=== PATIENT | female | born 1955 | race Caucasian/White ===

== ENCOUNTER 2016-10-29 19:10 | Inpatient (IN) | payer BC ==
[2016-10-29] MEDS ORDERED: Scopolamine 1.5 MG Transdermal Patch TRDERM PRN (20:30)
[2016-10-29] MEDS ORDERED: Sodium Chloride 0.9% 1,000 ML IV SCH (20:45)
[2016-10-29] MEDS ORDERED: LORazepam 2 MG/ML MDV IVPUSH ONE (21:22)
--- NOTE | 2016-10-29 21:50 | EDM.PDOC ---
ED HPI GENERAL MEDICAL PROBLEM - General Chief Complaint: General Stated Complaint: NAUSEA Time Seen by Provider: 10/29/16 20:12 Source of Information: Reports: Patient, Family ( Femi) History Limitations: Reports: Other (weakness, active vomiting) - History of Present Illness INITIAL COMMENTS - FREE TEXT/NARRATIVE: nausea and vomiting; this is a 60 year old female presents to ER with her , Femi, who reports his has been vomiting every day for the past 2 months, today has had continues vomiting. She is so weak from lack of food and water. difficulty walking due to weakness, has lost 30 pounds in the past 3 months. last bowel movement today. would like her admitted to get her stronger and gain wt. also has left leg pain since starting chemo. past history; diagnosis of endometral cancer 2014; hysterectomy, chemo therapy started. told cancer was gone. This year cancer is back, stage IV, mets to liver, spine. Not happy with care/ services at last Hospital ([facility]), they self referred to [facility]. Started Chemo; Aloxi IV, Bendryl IV, Decadron IV, Pepcid IV, Emend IV, Doxil IV [facility]; MRI, CT from head to toe. 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: Reports: Other (see below) Left Upper Leg Pain Score (Numeric/FACES): 8 - Related Data Allergies Allergy/AdvReac Type Severity Reaction Status Date / Time No Known Allergies Allergy Verified 10/29/16 20:12 Home Meds: Home Meds *Cannibus PO ASDIRECTED 10/29/16 [History] *Cbd Oil ASDIRECTED 10/29/16 [History] *Doxil ASDIRECTED 10/29/16 [History] LORazepam [Ativan ORAL Concentrate 1MG/0.5 ML U/D] 1 mg PO ASDIRECTED 10/29/16 [ History] Morphine 2.5 ml PO ASDIRECTED 10/29/16 [History] Ondansetron [Zofran ODT] 8 mg PO ASDIRECTED 10/29/16 [History] Past Medical History HEENT History: Reports: Impaired Vision Cardiovascular History: Reports: Arrhythmia, Blood Clots/VTE/DVT, Other (See Below) Other Cardiovascular History: cardiovert Gastrointestinal History: Reports: Chronic Constipation, Chronic Diarrhea, GERD 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: Other (See Below) Other OB/BYN History: endometrial cancer Immunologic History: Reports: Immunosuppression Oncologic (Cancer) History: Reports: Other (See Below) Other Oncologic History: endometrial - Infectious Disease History Infectious Disease History: Reports: Chicken Pox - Past Surgical History HEENT Surgical History: Reports: Other (See Below) Other HEENT Surgeries/Procedures: patch hole in ear drum Female Surgical History: Reports: Hysterectomy, Oophorectomy, Salpingo- Oophorectomy Social & Family History - Tobacco Use Smoking Status *Q: Never Smoker - Caffeine Use Caffeine Use: Reports: None - Recreational Drug Use Recreational Drug Use: No - Living Situation & Occupation Living situation: Reports: Occupation: Other (Valeria is to Femi, 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 They have two grown children ages 41 yr and 42 yr., many grandchildren.) ED ROS GENERAL - Review of Systems Review Of Systems: See Below Constitutional: Reports: Fever, Chills, Malaise, Weakness, Fatigue, Decreased Appetite, Weight Loss HEENT: Reports: Other (right ear with implant for hearing) Respiratory: Reports: Cough Cardiovascular: Reports: Dyspnea on Exertion, Edema (lower legs.) Endocrine: Reports: Fatigue GI/Abdominal: Reports: Abdominal Pain, Anorexia, Decreased Appetite, Nausea, Vomiting, Other (hx of endometrial cancer with mets to liver and spine) : Reports: Flank Pain Musculoskeletal: Reports: Back Pain, Leg Pain (left) Skin: Reports: No Symptoms Neurological: Reports: Difficulty Walking, Weakness Psychiatric: Reports: No Symptoms Hematologic/Lymphatic: Reports: No Symptoms Immunologic: Reports: No Symptoms ED EXAM, GENERAL - Physical Exam Exam: See Below Exam Limited By: Other (vomiting and weakness) General Appearance: Lethargic, Moderate Distress, Thin Eye Exam: Bilateral Eye: PERRL Ears: Normal External Exam, Normal Canal, Hearing Grossly Normal, Normal TMs, Other (hearing aid in right ear) Ear Exam: Bilateral Ear: Auricle Normal, Canal Normal, TM normal Nose: Normal Inspection, Normal Mucosa, No Blood Throat/Mouth: Normal Inspection, Normal Lips, Normal Teeth, Normal Gums, Normal Oropharynx, Normal Voice, No Airway Compromise Head: Atraumatic, Normocephalic Respiratory/Chest: No Respiratory Distress, Lungs Clear, Normal Breath Sounds Cardiovascular: Regular Rate, Rhythm, Other (murmur noted) GI/Abdominal: Tender, Other (abdomen firm, tender to exam) (Female) Exam: Deferred Rectal (Female) Exam: Deferred Back Exam: Normal Inspection Extremities: Normal Inspection, Normal Range of Motion, Non-Tender, Pedal Edema , Leg Pain Neurological: Alert, Oriented, Normal Cognition, Slow to Respond Psychiatric: Flat Affect Skin Exam: Warm, Dry, Intact, Pallor Lymphatic: No Adenopathy Course - Vital Signs Last Recorded V/S: Last Vital Signs Temp 37.5 C 10/29/16 20:22 Pulse 90 10/29/16 20:22 Resp 16 10/29/16 20:22 BP 131/57 L 10/29/16 20:22 Pulse Ox 94 L 10/29/16 20:22 - Orders/Labs/Meds Orders: Active Orders 24 hr Category Date Time Status AMYLASE [CHEM] Urgent Lab 10/29/16 20:38 Ordered CBC WITH AUTO DIFF [HEME] Urgent Lab 10/29/16 20:38 Ordered COMPREHENSIVE METABOLIC PN,CMP [CHEM] Urgent Lab 10/29/16 20:38 Ordered LACTIC ACID [CHEM] Stat Lab 10/29/16 20:39 Ordered LIPASE [CHEM] Urgent Lab 10/29/16 20:38 Ordered MAGNESIUM [CHEM] Urgent Lab 10/29/16 20:38 Ordered UA W/MICROSCOPIC [URIN] Urgent Lab 10/29/16 20:39 Uncollected Scopolamine [Transderm-Scop] Med 10/29/16 20:30 Active 1.5 mg TRDERM Q72H PRN Sodium Chloride 0.9% [Normal Saline] 1,000 ml Med 10/29/16 20:45 Active IV ASDIRECTED Medication Orders Sodium Chloride (Normal Saline) 1,000 mls @ 999 mls/hr IV ASDIRECTED PAU Last Admin: 10/29/16 21:19 Dose: 999 mls/hr Scopolamine (Transderm-Scop) 1.5 mg TRDERM Q72H PRN PRN Reason: Nausea/Vomiting Last Admin: 10/29/16 21:11 Dose: 1.5 mg Meds: Medications Generic Name Dose Route Start Last Admin Trade Name Freq PRN Reason Stop Dose Admin Sodium Chloride 1,000 mls @ 999 mls/hr 10/29/16 20:45 10/29/16 21:19 Normal Saline IV 999 mls/hr ASDIRECTED PAU Administration Scopolamine 1.5 mg 10/29/16 20:30 10/29/16 21:11 Transderm-Scop TRDERM 1.5 mg Q72H PRN Administration Nausea/Vomiting Discontinued Medications Generic Name Dose Route Start Last Admin Trade Name Freq PRN Reason Stop Dose Admin Lorazepam 1 mg 10/29/16 21:22 Ativan IVPUSH 10/29/16 21:23 ONETIME ONE - Re-Assessments/Exams Free Text/Narrative Re-Assessment/Exam: 10/29/16 21:58 order ; IV medications, IV fluids, Labs cbc, cmp, amylase, lipase, ur will plan to admit to hospital for further care and treatment. Departure - Departure Time of Disposition: 22:01 Disposition: Admitted As Inpatient 64 Condition: Poor Clinical Impression: Nausea and vomiting in adult patient, Endometrial cancer, Generalized weakness , Adenocarcinoma of endometrium, stage 4 - Discharge Information Forms: ED Department Discharge - My Orders Last 24 Hours: My Active Orders 10/29/16 20:30 Scopolamine [Transderm-Scop] 1.5 mg TRDERM Q72H PRN 10/29/16 20:38 AMYLASE [CHEM] Urgent CBC WITH AUTO DIFF [HEME] Urgent COMPREHENSIVE METABOLIC PN,CMP [CHEM] Urgent LIPASE [CHEM] Urgent MAGNESIUM [CHEM] Urgent 10/29/16 20:39 LACTIC ACID [CHEM] Stat UA W/MICROSCOPIC [URIN] Urgent 10/29/16 20:45 Sodium Chloride 0.9% [Normal Saline] 1,000 ml IV ASDIRECTED - Assessment/Plan Last 24 Hours: My Active Orders 10/29/16 20:30 Scopolamine [Transderm-Scop] 1.5 mg TRDERM Q72H PRN 10/29/16 20:38 AMYLASE [CHEM] Urgent CBC WITH AUTO DIFF [HEME] Urgent COMPREHENSIVE METABOLIC PN,CMP [CHEM] Urgent LIPASE [CHEM] Urgent MAGNESIUM [CHEM] Urgent 10/29/16 20:39 LACTIC ACID [CHEM] Stat UA W/MICROSCOPIC [URIN] Urgent 10/29/16 20:45 Sodium Chloride 0.9% [Normal Saline] 1,000 ml IV ASDIRECTED
[2016-10-29] MEDS ORDERED: Magnesium Sulfate/Water 2 GM in Premix Bag 1 BAG IV ONE (22:33)
[2016-10-29] MEDS ORDERED: Albuterol 0.083% 2.5 MG/3 ML Neb Soln NEB PRN (22:33)
[2016-10-29] MEDS ORDERED: HYDROmorphone/Normal Saline 15 MG/30 ML PCA IV PRN (22:33)
[2016-10-29] MEDS ORDERED: Naloxone 0.4 MG/ML SDV IVPUSH PRN ×2 (22:33)
[2016-10-29] MEDS ORDERED: Ketorolac 30 MG/ML SDV IVPUSH PRN (22:33)
[2016-10-29] MEDS ORDERED: LORazepam 2 MG/ML MDV IV PRN (22:33)
[2016-10-29] MEDS ORDERED: Zolpidem 5 MG Tab PO PRN (22:33)
[2016-10-29] MEDS ORDERED: Potassium Chloride 20 MEQ in Premix Bag 1 BAG IV ONE (22:33)
[2016-10-29] MEDS: Pantoprazole 40 MG Vial IV SCH (23:36)
[2016-10-30] MEDS: Lactated Ringers 1,000 ML IV SCH ×4 (00:05→23:21)
--- NOTE | 2016-10-30 00:15 | PCM.HP ---
H&P History of Present Illness - General Date of Service: 10/29/16 Admit Problem/Dx: Admission Diagnosis/Problem Admission Diagnosis/Problem Weakness Source of Information: Patient History Limitations: Reports: No Limitations - History of Present Illness Initial Comments - Free Text/Narative: INITIAL COMMENTS - FREE TEXT/NARRATIVE: nausea and vomiting; this is a 60 year old female presents to ER with her , Femi, who reports his has been vomiting every day for the past 2 months, today has had continues vomiting. She is so weak from lack of food and water. difficulty walking due to weakness, has lost 30 pounds in the past 3 months. last bowel movement today. would like her admitted to get her stronger and gain wt. also has left leg pain since starting chemo. past history; diagnosis of endometral cancer 2014; hysterectomy, chemo therapy started. told cancer was gone. This year cancer is back, stage IV, mets to liver, spine. Not happy with care/ services at last Hospital ([facility]), they self referred to [facility]. Started Chemo; Aloxi IV, Bendryl IV, Decadron IV, Pepcid IV, Emend IV, Doxil IV [facility]; MRI, CT from head to toe. 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: Other (see below) Left Upper Leg Pain Score (Numeric/FACES): 8 Onset of Symptoms: Reports: Gradual Duration of Symptoms: Reports: Week(s): (report 2 months of nausea), Constant, Getting Worse Location: Reports: Generalized Quality: Reports: Same as Previous Episode Severity: Severe Improves with: Reports: None Worsens with: Reports: None Associated Symptoms: Reports: Cough, Loss of Appetite, Malaise, Nausea/Vomiting , Weakness Left Upper Leg Pain Score (Numeric/FACES): 5 - Related Data Allergies/Adverse Reactions: Allergies Allergy/AdvReac Type Severity Reaction Status Date / Time No Known Allergies Allergy Verified 10/29/16 20:12 Home Medications: Home Meds *Cannibus PO ASDIRECTED 10/29/16 [History] *Cbd Oil ASDIRECTED 10/29/16 [History] *Doxil ASDIRECTED 10/29/16 [History] LORazepam [Ativan ORAL Concentrate 1MG/0.5 ML U/D] 1 mg PO ASDIRECTED 10/29/16 [ History] Morphine 2.5 ml PO ASDIRECTED 10/29/16 [History] Ondansetron [Zofran ODT] 8 mg PO ASDIRECTED 10/29/16 [History] Past Medical History HEENT History: Reports: Hard of Hearing, Impaired Vision Cardiovascular History: Reports: Arrhythmia, Blood Clots/VTE/DVT, Other (See Below) Other Cardiovascular History: cardiovert Respiratory History: Reports: PE Gastrointestinal History: Reports: Chronic Constipation, Chronic Diarrhea, GERD LANDING MAN History: 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: , Other (See Below) Other OB/BYN History: endometrial cancer Immunologic History: Reports: Immunosuppression Oncologic (Cancer) History: Reports: Other (See Below) Other Oncologic History: endometrial - Infectious Disease History Infectious Disease History: Reports: Chicken Pox - Past Surgical History HEENT Surgical History: Reports: Other (See Below) Other HEENT Surgeries/Procedures: patch hole in ear drum Female Surgical History: Reports: Hysterectomy, Oophorectomy, Salpingo- Oophorectomy Social & Family History - Tobacco Use Smoking Status *Q: Never Smoker Second Hand Smoke Exposure: No - Caffeine Use Caffeine Use: Reports: None - Recreational Drug Use Recreational Drug Use: Yes Other Recreational Drug Type: cannibus oil subliqual Recreational Drug Use Frequency: Daily - Living Situation & Occupation Living situation: Reports: Occupation: Other (lives with Femi , who is the "[employer]", [place], [place], two grown children age 41 yr and 42 yrs. many grandchildren) H&P Review of Systems - Review of Systems: Review Of Systems: Unable To Obtain General: Reports: Fever, Malaise, Weakness, Fatigue, Decreased Appetite HEENT: Reports: No Symptoms Pulmonary: Reports: Cough Cardiovascular: Reports: Dyspnea on Exertion Gastrointestinal: Reports: Abdominal Pain Genitourinary: Reports: Urgency Musculoskeletal: Reports: Back Pain, Leg Pain, Muscle Pain Skin: Reports: Pallor Psychiatric: Reports: No Symptoms Neurological: Reports: No Symptoms Hematologic/Lymphatic: Reports: No Symptoms Immunologic: Reports: No Symptoms Exam - Exam Exam: See Below - Vital Signs Vital Signs: Last Vital Signs Temp 37.3 C 10/29/16 22:09 Pulse 83 10/29/16 22:09 Resp 16 10/29/16 22:09 BP 107/44 L 10/29/16 22:09 Pulse Ox 95 10/29/16 22:09 Weight: 76 kg - Exam General: Alert, Oriented, Other (very pale female without hair, wearing a scarf. pleasant. appears chronically ill) HEENT: PERRLA, Hearing Intact, Mucosa Moist & [place], Nares Patent, Normal Nasal Septum, Posterior Pharynx Clear, Conjunctiva Clear, EOMI, EACs Clear, TMs Clear Neck: Supple, Trachea Midline, 2 Lungs: Clear to Auscultation, Normal Respiratory Effort Cardiovascular: Regular Rate, Regular Rhythm, Normal S1, Normal S2, Other ( murmur noted) Abdomen: Distention, Tenderness (Female) Exam: Deferred Rectal (Female) Exam: Deferred Back Exam: Normal Inspection, Full Range of Motion, NT Extremities: Edema, Other (noted left upper thigh.) Peripheral Pulses: 2+: Dorsalis Pedis (L), Dorsalis Pedis (R) Skin: Warm, Dry, Petechia (left upper thigh) Neurological: Strength Equal Bilateral (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), Normal Speech Neuro Extensive - Mental Status: Alert, Oriented x3, Normal Mood/Affect, Normal Cognition, Memory Intact Neuro Extensive - Motor, Sensory, Reflexes: Motor/Sensory Deficits Psychiatric: Alert, Normal Affect, Normal Mood - Patient Data Lab Results Last 24 hrs: Laboratory Results - last 24 hr 10/29/16 Range/Units 23:20 Urine Color Josephine Urine Appearance Clear Urine pH 6.5 (4.5-8.0) Ur Specific [place] 1.015 (1.008-1.030) Urine Protein Negative (NEGATIVE) mg/dL Urine Glucose (UA) Normal (NEGATIVE) mg/dL Urine Ketones 50 H (NEGATIVE) mg/dL Urine Occult Blood Moderate (NEGATIVE) Urine Nitrite Negative (NEGATIVE) Urine Bilirubin Negative (NEGATIVE) Urine Urobilinogen Normal (NORMAL) mg/dL Ur Leukocyte Esterase Negative (NEGATIVE) Urine RBC 0-5 (0-5) Urine WBC 5-10 H (0-5) Ur Epithelial Cells Few Amorphous Sediment Not seen Urine Bacteria Few Urine Mucus Many Result Diagrams: 10/29/16 20:39 10/29/16 20:39 *Q Meaningful Use (ADM) - VTE *Q VTE Criteria *Q: - Stroke *Q Stroke Criteria *Q: - AMI *Q AMI Criteria *Q: - Problem List (1) Adenocarcinoma of endometrium, stage 4 SNOMED Code(s): 388036885 ICD Code: C54.1 - MALIGNANT NEOPLASM OF ENDOMETRIUM Status: Acute Priority: High Current Visit: Yes (2) Generalized weakness SNOMED Code(s): 95724111 ICD Code: R53.1 - WEAKNESS Status: Acute Priority: High Current Visit: Yes (3) Nausea and vomiting in adult patient SNOMED Code(s): 94048483 ICD Code: R11.2 - NAUSEA WITH VOMITING, UNSPECIFIED Status: Acute Priority: High Current Visit: Yes Problem List Initiated/Reviewed/Updated: Yes Orders Last 24hrs: Active Orders 24 hr Category Date Time Status Patient Status [ADT] Routine ADT 10/29/16 22:33 Active Communication Order [RC] STAT Care 10/29/16 22:33 Active Communication Order [RC] STAT Care 10/29/16 22:33 Active Intake and Output [RC] QSHIFT Care 10/29/16 22:33 Active Notify Provider [RC] PRN Care 10/29/16 22:33 Active Notify Provider [RC] PRN Care 10/29/16 22:33 Active Oxygen Therapy [RC] PRN Care 10/29/16 22:33 Active MORGUE KEEPER Record [RC] PER UNIT ROUTINE Care 10/29/16 22:33 Active MORGUE KEEPER Record [RC] PER UNIT ROUTINE Care 10/29/16 22:33 Active Pulse Oximetry [RC] CONTINUOUS Care 10/29/16 22:33 Active Pulse Oximetry [RC] CONTINUOUS Care 10/29/16 22:33 Active RT Aerosol Therapy [RC] ASDIRECTED Care 10/29/16 22:33 Active Up With Assistance [RC] ASDIRECTED Care 10/29/16 22:33 Active VTE/DVT Education [RC] Per Unit Routine Care 10/29/16 22:33 Active Vital Signs [RC] Q4H Care 10/29/16 22:33 Active OT Evaluation and Treatment [CONS] Routine Cons 10/29/16 22:33 Active PT Evaluation and Treatment [CONS] Routine Cons 10/29/16 22:33 Active Clear Liquid Diet [DIET] Diet 10/29/16 Breakfast Active BASIC METABOLIC PANEL,BMP [CHEM] AM Lab 10/30/16 05:11 Ordered CBC WITH AUTO DIFF [HEME] AM Lab 10/30/16 05:11 Ordered MAGNESIUM [CHEM] AM Lab 10/30/16 05:11 Ordered Albuterol [Proventil Neb Soln] Med 10/29/16 22:33 Active 2.5 mg NEB Q4H PRN HYDROmorphone/Normal Saline [Dilaudid MORGUE KEEPER 15 MG in NS Med 10/29/16 22:33 Active 30 ML] See Protocol IV ASDIRECTED PRN Ketorolac [Toradol] Med 10/29/16 22:33 Active 30 mg IVPUSH Q6H PRN LORazepam [Ativan] Med 10/29/16 22:33 Active 1 mg IV Q6H PRN Lactated Ringers [Ringers, Lactated] 1,000 ml Med 10/29/16 23:45 Active IV ASDIRECTED Magnesium Sulfate/Water [Magnesium Sulfate 2 GM in Med 10/29/16 22:33 Active Water 50 ML] 2 gm Premix Bag 1 bag IV ONETIME Naloxone [Narcan] Med 10/29/16 22:33 Active 0.4 mg IVPUSH Q2M PRN Naloxone [Narcan] Med 10/29/16 22:33 Active 0.4 mg IVPUSH Q2M PRN Ondansetron [Zofran] Med 10/29/16 22:33 Active 4 mg IV Q4H PRN Pantoprazole [ProTONIX IV] Med 10/29/16 23:00 Active 40 mg IV Q12H Potassium Chloride [KCL 20 MEQ in Water 100 ML] 20 meq Med 10/29/16 22:33 Active Premix Bag 1 bag IV ONETIME Zolpidem [Ambien] Med 10/29/16 22:33 Active 5 mg PO BEDTIME PRN Medication Discontinuation Instructions [OM.PC] Stat Oth 10/29/16 22:33 Ordered Medication Discontinuation Instructions [OM.PC] Stat Oth 10/29/16 22:33 Ordered Sequential Compression Device [OM.PC] Per Unit Routine Oth 10/29/16 22:33 Ordered Resuscitation Status Routine Resus Stat 10/29/16 22:06 Ordered Medication Orders Albuterol (Proventil Neb Soln) 2.5 mg NEB Q4H PRN PRN Reason: Shortness Of Breath/wheezing Hydromorphone HCl (Dilaudid Application Architect Manager 15 Mg In Ns 30 Ml) 0 mg IV ASDIRECTED PRN; Protocol PRN Reason: Pain Last Admin: 10/29/16 23:58 Dose: 15 mg Sodium Chloride (Normal Saline) 1,000 mls @ 999 mls/hr IV ASDIRECTED [facility] Last Admin: 10/29/16 21:19 Dose: 999 mls/hr Magnesium Sulfate 2 gm/ Premix 50 mls @ 12.5 mls/hr IV ONETIME ONE Stop: 10/30/16 02:32 Last Admin: 10/29/16 23:33 Dose: 12.5 mls/hr Potassium Chloride 20 meq/ (Premix) 100 mls @ 50 mls/hr IV ONETIME ONE Stop: 10/30/16 00:32 Last Admin: 10/29/16 23:28 Dose: 50 mls/hr Lactated Ringer's (Ringers, Lactated) 1,000 mls @ 125 mls/hr IV ASDIRECTED [facility] Last Admin: 10/30/16 00:05 Dose: 125 mls/hr Ketorolac Tromethamine (Toradol) 30 mg IVPUSH Q6H PRN PRN Reason: Pain (moderate 4-6) Lorazepam (Ativan) 1 mg IV Q6H PRN PRN Reason: Nausea/Vomiting Naloxone HCl (Narcan) 0.4 mg IVPUSH Q2M PRN PRN Reason: Respiratory Distress Naloxone HCl (Narcan) 0.4 mg IVPUSH Q2M PRN PRN Reason: Respiratory Distress Ondansetron HCl (Zofran) 4 mg IV Q4H PRN PRN Reason: Nausea/Vomiting Pantoprazole Sodium (Protonix Iv) 40 mg IV Q12H [facility] Last Admin: 10/29/16 23:36 Dose: 40 mg Scopolamine (Transderm-Scop) 1.5 mg TRDERM Q72H PRN PRN Reason: Nausea/Vomiting Last Admin: 10/29/16 21:11 Dose: 1.5 mg Zolpidem Tartrate (Ambien) 5 mg PO BEDTIME PRN PRN Reason: Sleep Assessment/Plan Comment:: Assessment/Plan Comment:: nausea and vomiting; this is a 60 year old female presents to ER with her , Femi, who reports his has been vomiting every day for the past 2 months, today has had continues vomiting. She is so weak from lack of food and water. difficulty walking due to weakness, has lost 30 pounds in the past 3 months. last bowel movement today. would like her admitted to get her stronger and gain wt. also has left leg pain since starting chemo. past history; diagnosis of endometral cancer 2014; hysterectomy, chemo therapy started. told cancer was gone. This year cancer is back, stage IV, mets to liver, spine. Not happy with care/ services at last Hospital ([facility]), they self referred to [facility]. Started Chemo; Aloxi IV, Bendryl IV, Decadron IV, Pepcid IV, Emend IV, Doxil IV [facility]; MRI, CT from head to toe. Onset: Gradual Endometrial Cancer stage IV with mets to liver and spine Weakness Nausea and vomiting -Ativan .5 to 1mg IV every 6 hours as needed for N/V -IV LR 125ml/hr -clear liquid diet Maintenance issues - - DVT prophylaxis -SCD - GI prophylaxis - Protonix 40mg daily - Nutrition - clear liquid advance as tolerated - Enriquez catheter - not indicated CODE STATUS - FULL CODE Admission justification - This patient will be admitted for inpatient services and is medically appropriate meeting medical necessity for inpatient admission as outlined in my documentation. I reasonably expect the patient will require inpatient services that span a period time over 2 midnights. I reasonably expect this patient to be discharged or transferred within 96 hours [facility]. Disposition - anticipate discharged Home with Primary care physician - [facility] Hospitalist: Rodrigue Farrar M.D.
[2016-10-30] MEDS: Ondansetron 4 MG/2 ML SDV IV PRN ×2 (07:15→10:43)
[2016-10-30] MEDS: SCOPOLAMINE PATCH CHECK TOP SCH (08:14)
--- NOTE | 2016-10-30 09:34 | PCM.PN ---
- General Info Date of Service: 10/30/16 Functional Status: Reports: pain controlled, urinating - Review of Systems General: Reports: Weakness. Denies: Fever Gastrointestinal: Reports: Abdominal pain, Nausea Musculoskeletal: Reports: leg pain - Patient Data Vitals - most recent: Last Vital Signs Temp 37.0 C 10/30/16 07:52 Pulse 85 10/30/16 07:52 Resp 22 H 10/30/16 07:52 BP 138/58 L 10/30/16 07:52 Pulse Ox 91 L 10/30/16 07:52 Weight - most recent: 76 kg I&O - last 24 hours: Intake & Output 10/29/16 10/30/16 10/30/16 22:59 06:59 14:59 Intake Total 987 Output Total 300 200 Balance 687 -200 Lab Results last 24 hrs: Laboratory Results - last 24 hr 10/29/16 10/30/16 10/30/16 Range/Units 23:20 05:30 05:30 WBC 2.1 L (4.5-11.0) K/uL RBC 2.87 L (3.30-5.50) M/uL Hgb 7.6 L (12.0-15.0) g/dL Hct 24.3 L (36.0-48.0) % MCV 85 (80-98) fL MCH 27 (27-31) pg MCHC 31 L (32-36) % Plt Count 200 (150-400) K/uL Neut % (Auto) 75 H (36-66) % Lymph % (Auto) 15 L (24-44) % [place] % (Auto) 8 H (2-6) % Eos % (Auto) 2 (2-4) % Baso % (Auto) 1 (0-1) % Sodium 134 L (140-148) mmol/L Potassium 3.5 L (3.6-5.2) mmol/L Chloride 99 L (100-108) mmol/L Carbon Dioxide 30 (21-32) mmol/L Anion Gap 8.5 (5.0-14.0) mmol/L BUN 8 (7-18) mg/dL Creatinine 0.6 (0.6-1.0) mg/dL Est Cr Clr Drug Dosing 80.42 mL/min Estimated GFR (MDRD) > 60 (>60) Glucose 118 H (74-106) mg/dL Calcium 8.2 L (8.5-10.1) mg/dL Magnesium 1.7 L (1.8-2.4) mg/dL Urine Color [place] Urine Appearance Clear Urine pH 6.5 (4.5-8.0) Ur Specific [place] 1.015 (1.008-1.030) Urine Protein Negative (NEGATIVE) mg/dL Urine Glucose (UA) Normal (NEGATIVE) mg/dL Urine Ketones 50 H (NEGATIVE) mg/dL Urine Occult Blood Moderate (NEGATIVE) Urine Nitrite Negative (NEGATIVE) Urine Bilirubin Negative (NEGATIVE) Urine Urobilinogen Normal (NORMAL) mg/dL Ur Leukocyte Esterase Negative (NEGATIVE) Urine RBC 0-5 (0-5) Urine WBC 5-10 H (0-5) Ur Epithelial Cells Few Amorphous Sediment Not seen Urine Bacteria Few Urine Mucus Many Med Orders - Current: Current Medications Albuterol (Proventil Neb Soln) 2.5 mg NEB Q4H PRN PRN Reason: Shortness Of Breath/wheezing Al Hydroxide/Mg Hydroxide 15 (ml/ Lidocaine HCl 15 ml) 0 ml PO ONETIME ONE Stop: 10/30/16 09:30 Hydromorphone HCl (Dilaudid Administrative Analyst 15 Mg In Ns 30 Ml) 0 mg IV ASDIRECTED PRN; Protocol PRN Reason: Pain Last Admin: 10/29/16 23:58 Dose: 15 mg Lactated Ringer's (Ringers, Lactated) 1,000 mls @ 125 mls/hr IV ASDIRECTED PAU Last Admin: 10/30/16 08:09 Dose: 125 mls/hr Potassium Chloride 40 meq/ (Premix) 100 mls @ 25 mls/hr IV ONETIME ONE Stop: 10/30/16 13:29 Ketorolac Tromethamine (Toradol) 30 mg IVPUSH Q6H PRN PRN Reason: Pain (moderate 4-6) Stop: 11/03/16 18:00 Lorazepam (Ativan) 0.5 - 1 mg IV Q6H PRN PRN Reason: Nausea/Vomiting Naloxone HCl (Narcan) 0.4 mg IVPUSH Q2M PRN PRN Reason: Respiratory Distress Scopolamine Patch (Check) 1 each TOP DAILY [facility] Last Admin: 10/30/16 08:14 Dose: Not Given Ondansetron HCl (Zofran) 4 mg IV Q4H PRN PRN Reason: Nausea/Vomiting Last Admin: 10/30/16 07:15 Dose: 4 mg Pantoprazole Sodium (Protonix Iv) 40 mg IV Q12H [facility] Last Admin: 10/29/16 23:36 Dose: 40 mg Scopolamine (Transderm-Scop) 1.5 mg TRDERM Q72H PRN PRN Reason: Nausea/Vomiting Last Admin: 10/29/16 21:11 Dose: 1.5 mg Zolpidem Tartrate (Ambien) 5 mg PO BEDTIME PRN PRN Reason: Sleep Discontinued Medications Sodium Chloride (Normal Saline) 1,000 mls @ 999 mls/hr IV ASDIRECTED [facility] Last Admin: 10/29/16 21:19 Dose: 999 mls/hr Magnesium Sulfate 2 gm/ Premix 50 mls @ 12.5 mls/hr IV ONETIME ONE Stop: 10/30/16 02:32 Last Admin: 10/29/16 23:33 Dose: 12.5 mls/hr Potassium Chloride 20 meq/ (Premix) 100 mls @ 50 mls/hr IV ONETIME ONE Stop: 10/30/16 00:32 Last Admin: 10/29/16 23:28 Dose: 50 mls/hr Lorazepam (Ativan) 1 mg IVPUSH ONETIME ONE Stop: 10/29/16 21:23 Last Admin: 10/29/16 22:06 Dose: 1 mg Lorazepam (Ativan) 1 mg IV Q6H PRN PRN Reason: Nausea/Vomiting Naloxone HCl (Narcan) 0.4 mg IVPUSH Q2M PRN PRN Reason: Respiratory Distress - Exam Quality Assessment: No: supplemental oxygen General: alert, oriented, cooperative, no acute distress Neck: supple Lungs: Normal respiratory effort Cardiovascular: Regular Rate, Regular Rhythm Abdomen: soft, no distension Extremities: no edema, no cyanosis, other (bruising left lateral thigh. left lateral and anterior thigh ttp) Skin: warm, dry Psy/Mental Status: alert, normal affect - Problem List Review Problem List Initiated/Reviewed/Updated: Yes - My Orders Last 24 Hours: My Active Orders 10/30/16 09:29 Alum Hydrox/Mag Hydrox/Simeth [Mag-Al Plus] 15 ml Lidocaine 2% [Xylocaine 2% Viscous] 15 ml PO ONETIME 10/30/16 09:30 Potassium Chloride [KCL 40 MEQ in Water 100 ML] 40 meq Premix Bag 1 bag IV ONETIME 10/30/16 09:31 Cardiac Monitoring Discontinue [RC] Click to Edit 10/30/16 09:32 LORazepam [Ativan] 0.5 - 1 mg IV Q6H PRN Magnesium Sulfate/Water [Magnesium Sulfate 2 GM in Water 50 ML] 2 gm Premix Bag 1 bag IV ONETIME 10/30/16 Lunch Mechanical Soft Diet [DIET] 10/31/16 05:00 BASIC METABOLIC PANEL,BMP [CHEM] Timed CBC W/O DIFF,HEMOGRAM [HEME] Timed (1) TSH ULTRASENSITIVE [CHEM] Timed - Plan Plan:: Assessment/Plan Comment:: Nausea and vomiting with generalized weakness - etiology not entirely clear but no acute process identified so far. This could be related to recent chemotherapy and persistent dehydration. Gastritis is a possibility. No strong evidence for infection. Seems to be improving just with IV fluids and symptom management. -Antinausea medication -IV LR 125ml/hr -Advance diet as tolerated Left thigh pain - etiology not entirely clear, patient reports previous workup including CT and/or MRI. No reports of previous trauma. -Obtain records of previous workup -Consider repeat imaging Hypokalemia - mild and will be replaced this morning. Endometrial Cancer stage IV with mets to liver and spine - patient has been receiving chemotherapy with most recent treatment just over 2 weeks ago. She has been struggling with nausea and weakness since that time and symptoms have been progressive. She is aware that this is a palliative chemotherapy. She has chemotherapy associated anemia and anemia. -CBC in the morning, transfuse if hemoglobin less than 7 Maintenance issues - - DVT prophylaxis -SCD - GI prophylaxis - Protonix 40mg daily - Nutrition - clear liquid advance as tolerated - Enriquez catheter - not indicated Disposition - anticipate discharge to Home with Primary care physician - [facility] Rodrigue Farrar M.D.
[2016-10-30] MEDS ORDERED: Magnesium Sulfate/Water 2 GM in Premix Bag 1 BAG IV ONE (10:00)
[2016-10-30] MEDS ORDERED: Alum Hydrox/Mag Hydrox/Simeth 15 ML, Lidocaine 2% 15 ML PO ONE ×2 (10:00)
[2016-10-30] MEDS: Pantoprazole 40 MG Vial IV SCH ×2 (10:33→23:17)
[2016-10-30] MEDS ORDERED: Potassium Chloride 40 MEQ in Premix Bag 1 BAG IV ONE (11:00)
[2016-10-30] MEDS: LORazepam 2 MG/ML MDV IV PRN ×2 (13:27→19:57)
[2016-10-30] MEDS ORDERED: Metoclopramide 10 MG/2 ML SDV IVPUSH PRN (17:11)
[2016-10-30] MEDS ORDERED: Lidocaine 5% 700 MG Patch TOP SCH (17:30)
[2016-10-31] MEDS: LORazepam 2 MG/ML MDV IV PRN ×2 (01:56→21:17)
[2016-10-31] MEDS: SCOPOLAMINE PATCH CHECK TOP SCH (09:01)
[2016-10-31] MEDS: Ondansetron 4 MG/2 ML SDV IV PRN (09:05)
[2016-10-31] MEDS: Lactated Ringers 1,000 ML IV SCH (09:07)
[2016-10-31] MEDS ORDERED: Morphine 10 MG/0.5 ML Oral Syringe PO PRN (10:07)
[2016-10-31] MEDS ORDERED: LORazepam 0.5 MG Tab PO PRN (10:07)
--- NOTE | 2016-10-31 10:12 | PCM.PN ---
- General Info Date of Service: 10/31/16 Functional Status: Reports: pain controlled, tolerating diet - Review of Systems General: Reports: Weakness Gastrointestinal: Reports: Nausea Systems Review Comment:: No acute events overnight. She has been tolerating her diet with minimal nausea and no vomiting. No fevers overnight. No abdominal pain. Left thigh pain much better with the lidocaine patch. X-rays yesterday afternoon did not show significant bony pathology. - Patient Data Vitals - most recent: Last Vital Signs Temp 37.7 C 10/31/16 09:25 Pulse 100 10/31/16 09:25 Resp 16 10/31/16 09:25 BP 134/53 L 10/31/16 09:25 Pulse Ox 94 L 10/31/16 09:25 Weight - most recent: 76 kg I&O - last 24 hours: Intake & Output 10/30/16 10/31/16 10/31/16 22:59 06:59 14:59 Intake Total 1675 1403 Output Total 800 1350 Balance 875 53 Lab Results last 24 hrs: Laboratory Results - last 24 hr 10/31/16 10/31/16 Range/Units 05:37 05:37 WBC 2.4 L (4.5-11.0) K/uL RBC 3.02 L (3.30-5.50) M/uL Hgb 7.9 L (12.0-15.0) g/dL Hct 25.5 L (36.0-48.0) % MCV 84 (80-98) fL MCH 26 L (27-31) pg MCHC 31 L (32-36) % Plt Count 264 (150-400) K/uL Sodium 137 L (140-148) mmol/L Potassium 3.7 (3.6-5.2) mmol/L Chloride 100 (100-108) mmol/L Carbon Dioxide 29 (21-32) mmol/L Anion Gap 11.7 (5.0-14.0) mmol/L BUN 4 L (7-18) mg/dL Creatinine 0.7 (0.6-1.0) mg/dL Est Cr Clr Drug Dosing 68.91 mL/min Estimated GFR (MDRD) > 60 (>60) Glucose 123 H (74-106) mg/dL Calcium 8.3 L (8.5-10.1) mg/dL TSH, Ultra Sensitive 2.114 (0.358-3.740) uIU/mL Med Orders - Current: Current Medications Albuterol (Proventil Neb Soln) 2.5 mg NEB Q4H PRN PRN Reason: Shortness Of Breath/wheezing Potassium Chloride 20 meq/ (Premix) 100 mls @ 50 mls/hr IV ONETIME ONE Stop: 10/31/16 12:08 Ketorolac Tromethamine (Toradol) 30 mg IVPUSH Q6H PRN PRN Reason: Pain (moderate 4-6) Stop: 11/03/16 18:00 Lidocaine (Lidoderm 5%) 700 mg TOP Q24H PAU Lorazepam (Ativan) 0.5 - 1 mg IV Q6H PRN PRN Reason: Nausea/Vomiting Last Admin: 10/31/16 01:56 Dose: 1 mg Lorazepam (Ativan) 0.5 mg PO Q4H PRN PRN Reason: Nausea/Vomiting Miscellaneous Information (Remove Patch) 1 ea TRDERM Q24H PAU Last Admin: 10/31/16 09:05 Dose: 1 ea Morphine Sulfate (Morphine 10 Mg/0.5 Ml Oral Syringe) 5 mg PO Q4H PRN PRN Reason: Pain Naloxone HCl (Narcan) 0.4 mg IVPUSH Q2M PRN PRN Reason: Respiratory Distress Scopolamine Patch (Check) 1 each TOP DAILY PAU Last Admin: 10/31/16 09:01 Dose: 1 each Ondansetron HCl (Zofran Odt) 4 mg PO Q6H PRN PRN Reason: Nausea/Vomiting Prochlorperazine Maleate (Compazine) 10 mg PO TIDAC PAU Scopolamine (Transderm-Scop) 1.5 mg TRDERM Q72H PRN PRN Reason: Nausea/Vomiting Last Admin: 10/29/16 21:11 Dose: 1.5 mg Zolpidem Tartrate (Ambien) 5 mg PO BEDTIME PRN PRN Reason: Sleep Discontinued Medications Al Hydroxide/Mg Hydroxide 15 (ml/ Lidocaine HCl 15 ml) 0 ml PO ONETIME ONE Stop: 10/30/16 10:01 Last Admin: 10/30/16 11:02 Dose: 30 ml Hydromorphone HCl (Dilaudid Warrant Server 15 Mg In Ns 30 Ml) 0 mg IV ASDIRECTED PRN; Protocol PRN Reason: Pain Last Admin: 10/29/16 23:58 Dose: 15 mg Sodium Chloride (Normal Saline) 1,000 mls @ 999 mls/hr IV ASDIRECTED [facility] Last Admin: 10/29/16 21:19 Dose: 999 mls/hr Magnesium Sulfate 2 gm/ Premix 50 mls @ 12.5 mls/hr IV ONETIME ONE Stop: 10/30/16 02:32 Last Admin: 10/29/16 23:33 Dose: 12.5 mls/hr Potassium Chloride 20 meq/ (Premix) 100 mls @ 50 mls/hr IV ONETIME ONE Stop: 10/30/16 00:32 Last Admin: 10/29/16 23:28 Dose: 50 mls/hr Lactated Ringer's (Ringers, Lactated) 1,000 mls @ 125 mls/hr IV ASDIRECTED [facility] Last Admin: 10/31/16 09:07 Dose: 125 mls/hr Potassium Chloride 40 meq/ (Premix) 100 mls @ 25 mls/hr IV ONETIME ONE Stop: 10/30/16 14:59 Last Admin: 10/30/16 10:51 Dose: 25 mls/hr Magnesium Sulfate 2 gm/ Premix 50 mls @ 25 mls/hr IV ONETIME ONE Stop: 10/30/16 11:59 Last Admin: 10/30/16 10:52 Dose: 25 mls/hr Lidocaine (Lidoderm 5%) 700 mg TOP Q24H [facility] Last Admin: 10/30/16 17:57 Dose: 700 mg Lorazepam (Ativan) 1 mg IVPUSH ONETIME ONE Stop: 10/29/16 21:23 Last Admin: 10/29/16 22:06 Dose: 1 mg Lorazepam (Ativan) 1 mg IV Q6H PRN PRN Reason: Nausea/Vomiting Metoclopramide HCl (Reglan) 5 mg IVPUSH Q6H PRN PRN Reason: Nausea Last Admin: 10/30/16 23:14 Dose: 5 mg Miscellaneous Information (Remove Patch) 1 ea TRDERM Q24H [facility] Last Admin: 10/31/16 09:24 Dose: Not Given Naloxone HCl (Narcan) 0.4 mg IVPUSH Q2M PRN PRN Reason: Respiratory Distress Ondansetron HCl (Zofran) 4 mg IV Q4H PRN PRN Reason: Nausea/Vomiting Last Admin: 10/31/16 09:05 Dose: 4 mg Pantoprazole Sodium (Protonix Iv) 40 mg IV Q12H [facility] Last Admin: 10/30/16 23:17 Dose: 40 mg - Exam Quality Assessment: No: supplemental oxygen General: alert, oriented, cooperative, no acute distress Neck: supple Lungs: Normal respiratory effort Cardiovascular: Regular Rate, Regular Rhythm Abdomen: soft, no distension Extremities: no edema, no cyanosis Skin: warm, dry Psy/Mental Status: alert, normal affect - Problem List Review Problem List Initiated/Reviewed/Updated: Yes - My Orders Last 24 Hours: My Active Orders 10/30/16 09:32 LORazepam [Ativan] 0.5 - 1 mg IV Q6H PRN 10/30/16 17:12 Femur Min 2V Lt [CR] Routine 10/30/16 Lunch Mechanical Soft Diet [DIET] 10/31/16 09:00 Remove Patch 1 ea TRDERM Q24H 10/31/16 10:05 Convert IV to Saline Lock [OM.PC] Routine 10/31/16 10:06 Ondansetron [Zofran ODT] 4 mg PO Q6H PRN 10/31/16 10:07 LORazepam [Ativan] 0.5 mg PO Q4H PRN Morphine [Morphine 10 MG/0.5 ML Oral Syringe] 5 mg PO Q4H PRN 10/31/16 10:09 Potassium Chloride [KCL 20 MEQ in Water 100 ML] 20 meq Premix Bag 1 bag IV ONETIME 10/31/16 11:00 Prochlorperazine [Compazine] 10 mg PO TIDAC 10/31/16 21:00 Lidocaine 5% [Lidoderm 5%] 700 mg TOP Q24H 11/01/16 05:00 BASIC METABOLIC PANEL,BMP [CHEM] Timed CBC W/O DIFF,HEMOGRAM [HEME] Timed (1) - Plan Plan:: Assessment/Plan Comment:: Nausea and vomiting with generalized weakness - etiology not entirely clear but no acute process identified so far, probably chemotherapy related. -scopolamine patch -Scheduled prochlorperazine -As needed ondansetron -encourage oral intake -soft diet Left thigh pain - etiology not entirely clear, patient reports previous workup including CT and/or MRI. No reports of previous trauma.x-rays were negative. -lidocaine patch -As needed morphine Hypokalemia - improved with replacement Endometrial Cancer stage IV with mets to liver and spine - patient has been receiving chemotherapy with most recent treatment just over 2 weeks ago. She has been struggling with nausea and weakness since that time and symptoms have been progressive. She is aware that this is a palliative chemotherapy. She has chemotherapy associated anemia and anemia. -CBC in the morning, transfuse if hemoglobin less than 7 Maintenance issues - - DVT prophylaxis -SCD - GI prophylaxis - Protonix 40mg daily - Nutrition - soft diet - Enriquez catheter - not indicated Disposition - anticipate discharge to Home with , possibly tomorrow if stable overnight Primary care physician - [facility] Rodrigue Farrar M.D.
[2016-10-31] MEDS ORDERED: Potassium Chloride 20 MEQ in Premix Bag 1 BAG IV ONE (10:30)
[2016-10-31] MEDS: Prochlorperazine 10 MG Tab PO SCH ×2 (11:41→16:04)
[2016-10-31] MEDS: Ondansetron 4 MG Tab.DIS PO PRN (13:28)
[2016-10-31] MEDS ORDERED: Lidocaine 5% 700 MG Patch TOP SCH (21:00)
[2016-11-01] MEDS: Ondansetron 4 MG Tab.DIS PO PRN ×2 (02:20→10:47)
[2016-11-01] MEDS: LORazepam 2 MG/ML MDV IV PRN (05:43)
[2016-11-01] MEDS: Prochlorperazine 10 MG Tab PO SCH ×2 (08:19→11:43)
[2016-11-01] MEDS: SCOPOLAMINE PATCH CHECK TOP SCH (08:20)
[2016-11-01] MEDS ORDERED: Potassium Chloride 20 MEQ Tab.ER PO ONE (10:00)
[2016-11-01 11:09] VITALS: BP 127/61
--- NOTE | 2016-11-01 11:23 | PCM.DCSUM1 ---
Discharge Summary - Hospital Course Brief History: 60-year-old female with stage IV endometrial cancer who presented with nausea, vomiting and weakness 2 weeks after chemotherapy. She was admitted for hydration and electrolyte replacement. - Discharge Data Discharge Date: 11/01/16 Discharge Disposition: Home, Self-Care 01 Condition: Fair - Discharge Diagnosis/Problem(s) (1) Nausea and vomiting in adult patient SNOMED Code(s): 22031530 ICD Code: R11.2 - NAUSEA WITH VOMITING, UNSPECIFIED Status: Acute Priority: High Current Visit: Yes (2) Generalized weakness SNOMED Code(s): 06653191 ICD Code: R53.1 - WEAKNESS Status: Acute Priority: High Current Visit: Yes (3) Adenocarcinoma of endometrium, stage 4 SNOMED Code(s): 512342053 ICD Code: C54.1 - MALIGNANT NEOPLASM OF ENDOMETRIUM Status: Chronic Priority: High Current Visit: Yes (4) Left thigh pain SNOMED Code(s): 40080162 ICD Code: M79.652 - PAIN IN LEFT THIGH Status: Acute Current Visit: Yes - Patient Summary/Data Consults: Consultations 10/29/16 22:33 PT Evaluation and Treatment [CONS] Routine Please Evaluate and Treat. PT Reason for Consult: Strengthening This query below is only for informational purposes and is not editable. Hospital Course: Valeria presented to the emergency room with nausea, vomiting and weakness. Workup in the emergency room was relatively reassuring but given her level of dehydration and the severity of her symptoms she was admitted to the hospital for management. She has been having difficulty with nausea and vomiting and dehydration since her chemotherapy began. Following initial volume resuscitation and acute termination of her nausea we discussed the potential treatment options. We elected to continue the scopolamine patch which seemed to provide a significant benefit. I did also recommend scheduled Compazine. This would be taken around mealtimes to reduce nausea. We elected to keep the ondansetron and the lorazepam that she can use as needed if she has breakthrough nausea. These interventions provided significant relief. She has tolerated her diet well other than one episode of vomiting after she received a potassium chloride tablet. Her strength has been improving and she's been able to ambulate in the halls with her walker. She has been able to maintain her hydration even after IV fluids were discontinued. Also encountered during the hospital stay were hypokalemia which has responded well to supplementation and left thigh pain. I did review the records from [place] and she has had a CT scan which was somewhat concerning for a possible bony metastasis but the MRI did not reveal any bony abnormalities. She has a small bruise in the area. I did repeat some x-rays and did not see any evidence for metastasis or fracture. I suspect that she has a myositis as was demonstrated with the MRI. We did place a lidocaine patch over the sore area on her thigh and she has had fairly impressive improvement in the pain. I believe she is safe for outpatient management at this time. No medications are outlined in the MAR and revolve mostly around the nausea but also lidocaine patch to help with her left thigh pain. She will be following up with her oncology team. She is considering a short period of time without chemotherapy to allow herself to heal up and better tolerate the treatments. - Patient Instructions Diet: Regular Diet as Tolerated Activity: As Tolerated Showering/Bathing: May Shower Notify Provider of: Fever, Increased Pain, Nausea and/or Vomiting Other/Special Instructions: 1. You were in the hospital for management of nausea and vomiting probably caused by recent chemotherapy and propagated by chronic dehydration. Symptoms have improved with the use of a scopolamine patch and scheduled antinausea medications. I recommend that we continue using the following medications to help control your nausea: --Scopolamine - place this patch behind her ear. It may remain in place for 72 hours before it needs to be changed. This will help provide a small amount of medication around the clock to reduce your nausea. --Compazine - take this medication approximately 30 minutes before you eat meals. This will help reduce your mealtime nausea. -- Ondansetron - take this medication as needed for nausea that comes between meals or occurs in the evening after supper. --Be sure to drink plenty of water as maintaining hydration is extremely important to help reduce future episodes of nausea. 2. Your left thigh pain appears to be caused by myositis or muscle inflammation. Your pain has improved with the use of a lidocaine patch. I have provided a prescription for this patch. You should wear the patch for 12 hours and then remove it for [address] a new one. 3. Please seek medical attention if he develops fever greater than 101 or you have persistent nausea and vomiting that is not relieved with the above medications - Discharge Plan Prescriptions/Med Rec: Lidocaine 5% [Lidoderm 5%] 700 mg TOP Q24H #30 patch Ondansetron [Zofran Odt] 8 mg PO ASDIRECTED #30 tab.dis Prochlorperazine [Compazine] 10 mg PO TIDAC #90 tablet Scopolamine [Transderm-Scop] 1.5 mg TRDERM Q72H #10 patch Home Medications: Home Meds *Cannibus PO ASDIRECTED 10/29/16 [History] *Cbd Oil ASDIRECTED 10/29/16 [History] *Doxil ASDIRECTED 10/29/16 [History] LORazepam [Ativan ORAL Concentrate 1MG/0.5 ML U/D] 1 mg PO Q4H PRN 10/29/16 [ History] Morphine [Morphine 10 MG/5 ML] 5 mg PO Q4H PRN 10/31/16 [History] Lidocaine 5% [Lidoderm 5%] 700 mg TOP Q24H #30 patch 11/01/16 [Rx] Ondansetron [Zofran Odt] 8 mg PO ASDIRECTED #30 tab.dis 11/01/16 [Rx] Prochlorperazine [Compazine] 10 mg PO TIDAC #90 tablet 11/01/16 [Rx] Scopolamine [Transderm-Scop] 1.5 mg TRDERM Q72H #10 patch 11/01/16 [Rx] Patient Handouts: Nausea, Adult Forms: ED Department Discharge Referrals: PCP,None [Primary Care Provider] - (follow-up with your primary care and cancer doctors as scheduled) - Discharge Summary/Plan Comment DC Time >30 min.: No (25) - Patient Data Vitals - Most Recent: Last Vital Signs Temp 37.1 C 11/01/16 11:00 Pulse 88 11/01/16 11:00 Resp 18 11/01/16 11:00 BP 127/61 11/01/16 11:00 Pulse Ox 92 L 11/01/16 11:00 Weight - Most Recent: 76 kg I&O - Last 24 hours: Intake & Output 10/31/16 11/01/16 11/01/16 22:59 06:59 14:59 Intake Total 240 480 Output Total 400 450 Balance -160 -450 480 Lab Results - Last 24 hrs: Laboratory Results - last 24 hr 11/01/16 11/01/16 Range/Units 05:30 05:30 WBC 2.0 L (4.5-11.0) K/uL RBC 2.92 L (3.30-5.50) M/uL Hgb 7.7 L (12.0-15.0) g/dL Hct 24.9 L (36.0-48.0) % MCV 85 (80-98) fL MCH 26 L (27-31) pg MCHC 31 L (32-36) % Plt Count 308 (150-400) K/uL Sodium 136 L (140-148) mmol/L Potassium 3.3 L (3.6-5.2) mmol/L Chloride 100 (100-108) mmol/L Carbon Dioxide 29 (21-32) mmol/L Anion Gap 10.3 (5.0-14.0) mmol/L BUN 3 L (7-18) mg/dL Creatinine 0.7 (0.6-1.0) mg/dL Est Cr Clr Drug Dosing 68.91 mL/min Estimated GFR (MDRD) > 60 (>60) Glucose 126 H (74-106) mg/dL Calcium 8.4 L (8.5-10.1) mg/dL Med Orders - Current: Current Medications Albuterol (Proventil Neb Soln) 2.5 mg NEB Q4H PRN PRN Reason: Shortness Of Breath/wheezing Heparin Sodium (Porcine) (Heparin Lock Flush 100 Units/Ml) 500 units FLUSH ASDIRECTED PRN PRN Reason: IV discontinuation Last Admin: 11/01/16 05:47 Dose: 500 units Ketorolac Tromethamine (Toradol) 30 mg IVPUSH Q6H PRN PRN Reason: Pain (moderate 4-6) Stop: 11/03/16 18:00 Lidocaine (Lidoderm 5%) 700 mg TOP Q24H PAU Last Admin: 10/31/16 21:19 Dose: 700 mg Lorazepam (Ativan) 0.5 - 1 mg IV Q6H PRN PRN Reason: Nausea/Vomiting Last Admin: 11/01/16 05:43 Dose: 0.5 mg Lorazepam (Ativan) 0.5 mg PO Q4H PRN PRN Reason: Nausea/Vomiting Miscellaneous Information (Remove Patch) 1 ea TRDERM Q24H [facility] Last Admin: 11/01/16 08:20 Dose: Not Given Morphine Sulfate (Morphine 10 Mg/0.5 Ml Oral Syringe) 5 mg PO Q4H PRN PRN Reason: Pain Naloxone HCl (Narcan) 0.4 mg IVPUSH Q2M PRN PRN Reason: Respiratory Distress Scopolamine Patch (Check) 1 each TOP DAILY [facility] Last Admin: 11/01/16 08:20 Dose: Not Given Ondansetron HCl (Zofran Odt) 4 mg PO Q6H PRN PRN Reason: Nausea/Vomiting Last Admin: 11/01/16 10:47 Dose: 4 mg Prochlorperazine Maleate (Compazine) 10 mg PO TIDAC [facility] Last Admin: 11/01/16 08:19 Dose: 10 mg Scopolamine (Transderm-Scop) 1.5 mg TRDERM Q72H PRN PRN Reason: Nausea/Vomiting Last Admin: 10/29/16 21:11 Dose: 1.5 mg Zolpidem Tartrate (Ambien) 5 mg PO BEDTIME PRN PRN Reason: Sleep Discontinued Medications Al Hydroxide/Mg Hydroxide 15 (ml/ Lidocaine HCl 15 ml) 0 ml PO ONETIME ONE Stop: 10/30/16 10:01 Last Admin: 10/30/16 11:02 Dose: 30 ml Hydromorphone HCl (Dilaudid Top Frame Maker 15 Mg In Ns 30 Ml) 0 mg IV ASDIRECTED PRN; Protocol PRN Reason: Pain Last Admin: 10/29/16 23:58 Dose: 15 mg Sodium Chloride (Normal Saline) 1,000 mls @ 999 mls/hr IV ASDIRECTED [facility] Last Admin: 10/29/16 21:19 Dose: 999 mls/hr Magnesium Sulfate 2 gm/ Premix 50 mls @ 12.5 mls/hr IV ONETIME ONE Stop: 10/30/16 02:32 Last Admin: 10/29/16 23:33 Dose: 12.5 mls/hr Potassium Chloride 20 meq/ (Premix) 100 mls @ 50 mls/hr IV ONETIME ONE Stop: 10/30/16 00:32 Last Admin: 10/29/16 23:28 Dose: 50 mls/hr Lactated Ringer's (Ringers, Lactated) 1,000 mls @ 125 mls/hr IV ASDIRECTED [facility] Last Admin: 10/31/16 09:07 Dose: 125 mls/hr Potassium Chloride 40 meq/ (Premix) 100 mls @ 25 mls/hr IV ONETIME ONE Stop: 10/30/16 14:59 Last Admin: 10/30/16 10:51 Dose: 25 mls/hr Magnesium Sulfate 2 gm/ Premix 50 mls @ 25 mls/hr IV ONETIME ONE Stop: 10/30/16 11:59 Last Admin: 10/30/16 10:52 Dose: 25 mls/hr Potassium Chloride 20 meq/ (Premix) 100 mls @ 50 mls/hr IV ONETIME ONE Stop: 10/31/16 12:29 Last Admin: 10/31/16 11:41 Dose: 50 mls/hr Lidocaine (Lidoderm 5%) 700 mg TOP Q24H PAU Last Admin: 10/30/16 17:57 Dose: 700 mg Lorazepam (Ativan) 1 mg IVPUSH ONETIME ONE Stop: 10/29/16 21:23 Last Admin: 10/29/16 22:06 Dose: 1 mg Lorazepam (Ativan) 1 mg IV Q6H PRN PRN Reason: Nausea/Vomiting Metoclopramide HCl (Reglan) 5 mg IVPUSH Q6H PRN PRN Reason: Nausea Last Admin: 10/30/16 23:14 Dose: 5 mg Miscellaneous Information (Remove Patch) 1 ea TRDERM Q24H PAU Last Admin: 10/31/16 09:24 Dose: Not Given Naloxone HCl (Narcan) 0.4 mg IVPUSH Q2M PRN PRN Reason: Respiratory Distress Ondansetron HCl (Zofran) 4 mg IV Q4H PRN PRN Reason: Nausea/Vomiting Last Admin: 10/31/16 09:05 Dose: 4 mg Pantoprazole Sodium (Protonix Iv) 40 mg IV Q12H PAU Last Admin: 10/30/16 23:17 Dose: 40 mg Potassium Chloride (Klor-Con M20) 40 meq PO ONETIME ONE Stop: 11/01/16 10:01 *Q Meaningful Use (DIS) - VTE *Q VTE Criteria *Q: - Stroke *Q Stroke Criteria *Q: - AMI *Q AMI Criteria *Q:
--- NOTE | 2016-11-02 10:40 | CR ---
Femur Min 2V Lt INDICATION: left thigh pain FINDINGS: No acute fracture. Small accessory ossicle or ligamentous calcification adjacent to the gr eater trochanter.
== END 2016-11-01 13:10 | disposition home or self-care (01) | DRG 422 ==
LOC: JP.ED 19:10 → JP.ICU 22:03 → JP.2SS 10-31 13:00
PROVIDERS: ADMIT Internal Medicine; ATTEND Internal Medicine
DX: E86.0 Dehydration (principal); C54.1 Malignant neoplasm of endometrium; R53.1 Weakness; R11.2 Nausea with vomiting, unspecified; E87.6 Hypokalemia; M60.9 Myositis, unspecified; M79.652 Pain in left thigh; Z86.718 Personal history of other venous thrombosis and embolism; H54.7 Unspecified visual loss; C78.7 Secondary malignant neoplasm of liver and intrahepatic bile duct; C79.51 Secondary malignant neoplasm of bone
CPT/HCPCS: 36415; 73552-26-LT; 73552-LT; 80048; 80053; 81001; 82150; 83605; 83690; 83735; 84443; 84484; 85025; 85027; 96361; 96374; 97110-GP; 97162-GP; 97165-GO; 97530-GP; 99284-25; A9270-GY; C9113; J1170; J1642; J2060; J2405; J2765; J3475; J3480; J7040; J7120

== ENCOUNTER 2016-11-03 09:20 | Emergency (ER) | payer BC ==
[2016-11-03] MEDS ORDERED: Ondansetron 4 MG/2 ML SDV IVPUSH ONE (10:18)
[2016-11-03] MEDS ORDERED: HYDROmorphone 0.5 MG/0.5 ML Syringe IVPUSH ONE (10:18)
[2016-11-03] MEDS ORDERED: LORazepam 2 MG/ML MDV IVPUSH ONE (10:18)
[2016-11-03] MEDS ORDERED: Lactated Ringers 1,000 ML IV ONE (10:19)
--- NOTE | 2016-11-03 10:22 | EDM.PDOC ---
ED HPI GENERAL MEDICAL PROBLEM - General Chief Complaint: Gastrointestinal Problem Stated Complaint: NAUSEA Time Seen by Provider: 11/03/16 10:13 Source of Information: Reports: Patient, Family, RN Notes Reviewed History Limitations: Reports: No Limitations - History of Present Illness INITIAL COMMENTS - FREE TEXT/NARRATIVE: 60-year-old female presents emergency department day complaint of nausea and vomiting, she is known history of endometrial cancer stage IV follows at the cancer [facility] in [place], she was recently admitted to the hospital last week same issue unfortunately she could not fill the medications that were provided she is had inability to keep anything down for the last 24-36 hrs. - Related Data Allergies Allergy/AdvReac Type Severity Reaction Status Date / Time No Known Allergies Allergy Verified 10/29/16 20:12 Home Meds: Home Meds *Cannibus PO ASDIRECTED 10/29/16 [History] *Cbd Oil ASDIRECTED 10/29/16 [History] *Doxil ASDIRECTED 10/29/16 [History] LORazepam [Ativan ORAL Concentrate 1MG/0.5 ML U/D] 1 mg PO Q4H PRN 10/29/16 [ History] Morphine [Morphine 10 MG/5 ML] 5 mg PO Q4H PRN 10/31/16 [History] Lidocaine 5% [Lidoderm 5%] 700 mg TOP Q24H #30 patch 11/01/16 [Rx] Ondansetron [Zofran Odt] 8 mg PO ASDIRECTED #30 tab.dis 11/01/16 [Rx] Prochlorperazine [Compazine] 10 mg PO TIDAC #90 tablet 11/01/16 [Rx] Scopolamine [Transderm-Scop] 1.5 mg TRDERM Q72H #10 patch 11/01/16 [Rx] Ondansetron [Zofran ODT] 4 mg PO Q8H #20 tab.dis 11/03/16 [Rx] Past Medical History HEENT History: Reports: Hard of Hearing, Impaired Vision Cardiovascular History: Reports: Arrhythmia, Blood Clots/VTE/DVT, Other (See Below) Other Cardiovascular History: cardiovert Respiratory History: Reports: PE Gastrointestinal History: Reports: Chronic Constipation, Chronic Diarrhea, GERD 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: , Other (See Below) Other OB/BYN History: endometrial cancer Other Hematologic History: ANEMIA Immunologic History: Reports: Immunosuppression Oncologic (Cancer) History: Reports: Other (See Below) Other Oncologic History: endometrial - Infectious Disease History Infectious Disease History: Reports: Chicken Pox, Measles, Mumps - Past Surgical History HEENT Surgical History: Reports: Other (See Below) Other HEENT Surgeries/Procedures: patch hole in ear drum Female Surgical History: Reports: Hysterectomy, Oophorectomy, Salpingo- Oophorectomy Social & Family History - Tobacco Use Smoking Status *Q: Never Smoker Second Hand Smoke Exposure: No - Caffeine Use Caffeine Use: Reports: None - Recreational Drug Use Recreational Drug Use: No Other Recreational Drug Type: cannibus oil subliqual Recreational Drug Use Frequency: Daily - Living Situation & Occupation Living situation: Reports: Occupation: Other (lives with Femi , who is the "[employer]", [place], [place], two grown children age 41 yr and 42 yrs. many grandchildren) ED ROS GENERAL - Review of Systems Review Of Systems: See Below Constitutional: Reports: Weakness. Denies: Fever, Chills HEENT: Reports: No Symptoms Respiratory: Reports: No Symptoms Cardiovascular: Reports: No Symptoms GI/Abdominal: Reports: Nausea, Vomiting. Denies: Abdominal Pain : Reports: No Symptoms Musculoskeletal: Reports: No Symptoms Skin: Reports: No Symptoms Neurological: Reports: No Symptoms ED EXAM, GENERAL - Physical Exam Exam: See Below Exam Limited By: No Limitations General Appearance: Alert, Mild Distress Respiratory/Chest: No Respiratory Distress, Lungs Clear, Normal Breath Sounds, No Accessory Muscle Use Cardiovascular: Regular Rate, Rhythm, No Murmur GI/Abdominal: Soft, Non-Tender Course - Vital Signs Last Recorded V/S: Last Vital Signs Temp 96.5 F 11/03/16 11:43 Pulse 80 11/03/16 12:53 Resp 16 11/03/16 12:53 BP 131/65 11/03/16 12:53 Pulse Ox 92 L 11/03/16 12:53 - Orders/Labs/Meds Labs: Laboratory Tests 11/03/16 11/03/16 Range/Units 10:30 10:30 WBC 1.7 L (4.5-11.0) K/uL RBC 2.94 L (3.30-5.50) M/uL Hgb 7.7 L (12.0-15.0) g/dL Hct 25.2 L (36.0-48.0) % MCV 86 (80-98) fL MCH 26 L (27-31) pg MCHC 31 L (32-36) % Plt Count 335 (150-400) K/uL Neut % (Auto) 56 (36-66) % Lymph % (Auto) 17 L (24-44) % Howell % (Auto) 25 H (2-6) % Eos % (Auto) 1 L (2-4) % Baso % (Auto) 1 (0-1) % Sodium 138 L (140-148) mmol/L Potassium 3.6 (3.6-5.2) mmol/L Chloride 101 (100-108) mmol/L Carbon Dioxide 33 H (21-32) mmol/L Anion Gap 7.6 (5.0-14.0) mmol/L BUN 5 L D (7-18) mg/dL Creatinine 0.7 (0.6-1.0) mg/dL Est Cr Clr Drug Dosing 68.93 mL/min Estimated GFR (MDRD) > 60 (>60) Glucose 129 H (74-106) mg/dL Calcium 8.3 L (8.5-10.1) mg/dL Magnesium 1.5 L (1.8-2.4) mg/dL Total Bilirubin 0.3 (0.2-1.0) mg/dL AST 11 L (15-37) U/L ALT 13 (12-78) U/L Alkaline Phosphatase 65 (46-116) U/L Total Protein 6.1 L (6.4-8.2) g/dL Albumin 2.2 L (3.4-5.0) g/dL Globulin 3.9 H (2.3-3.5) g/dL Albumin/Globulin Ratio 0.6 L (1.2-2.2) Meds: Medications Discontinued Medications Generic Name Dose Route Start Last Admin Trade Name Freq PRN Reason Stop Dose Admin Hydromorphone HCl 0.5 mg 11/03/16 10:18 11/03/16 10:55 Dilaudid IVPUSH 11/03/16 10:19 0.5 mg ONETIME ONE Administration Lactated Ringer's 1,000 mls @ 999 mls/hr 11/03/16 10:19 11/03/16 10:55 Ringers, Lactated IV 07/11/17 11:19 999 mls/hr BOLUS ONE Administration Lorazepam 1 mg 11/03/16 10:18 11/03/16 10:54 Ativan IVPUSH 11/03/16 10:19 1 mg ONETIME ONE Administration Ondansetron HCl 4 mg 11/03/16 10:18 11/03/16 10:55 Zofran IVPUSH 11/03/16 10:19 4 mg ONETIME ONE Administration Departure - Departure Time of Disposition: 13:28 Disposition: Home, Self-Care 01 Condition: Poor Clinical Impression: Nausea and vomiting in adult patient - Discharge Information Prescriptions: Ondansetron [Zofran ODT] 4 mg PO Q8H #20 tab.dis Forms: ED Department Discharge Additional Instructions: Use Zofran as needed to help control nausea and vomiting symptoms, Please followup with your primary care provider in 3-5 days if not better, please call return to the emergency department with worsening of symptoms. - Assessment/Plan Plan: Assessment Acuity = acute Site and laterality = nausea and vomiting complicating the patient with known history of endometrial cancer stage IV Etiology = probably related to chemotherapy and cancer Manifestations = none Location of injury = Home Lab values = WBC low at 1.7 consistent leukopenia, hemoglobin low at 7.7 consistent with a normochromic anemia sodium low at 138 consistent with hyponatremia magnesium low at 1.5 consistent hypomagnesemia albumin low at 2.2 consistent hypoalbuminemia Plan She had significant improvement with the IV fluids and Zofran, discharged home with Zofran total #20 tablets follow-up with primary care 3-5 days if no improvement Patient was in agreement with the plan all questions were answered, they were instructed to return to the emergency department or call for worsening symptoms. This note was dictated using [employer] voice recognition software please call with any questions.
[2016-11-03] MEDS ORDERED: Sodium Chloride 0.9% 10 ML Syringe FLUSH ONE (14:32)
[2016-11-03] MEDS ORDERED: Scopolamine 1.5 MG Transdermal Patch TRDERM PRN (14:37)
[2016-11-03 15:38] VITALS: BP 120/58
== END 2016-11-03 14:53 | disposition home or self-care (01) ==
LOC: JP.ED 09:20
DX: R11.2 Nausea with vomiting, unspecified (principal); K21.9 Gastro-esophageal reflux disease without esophagitis; Z90.710 Acquired absence of both cervix and uterus; Z90.721 Acquired absence of ovaries, unilateral; Z86.2 Personal history of diseases of the blood and blood-forming organs and certain disorders involving the immune mechanism; Z86.718 Personal history of other venous thrombosis and embolism
CPT/HCPCS: 36415; 80053; 83735; 85025; 96361; 96374; 96375; 99284; A9270; J1170; J1642; J2060; J2405; J7050; J7120

== ENCOUNTER 2016-11-03 21:12 | Emergency (ER) | payer BC ==
[2016-11-03] MEDS ORDERED: Prochlorperazine 10 MG/2 ML SDV IVPUSH ONE (22:56)
--- NOTE | 2016-11-04 01:31 | EDM.PDOC ---
ED HPI GENERAL MEDICAL PROBLEM - General Chief Complaint: Gastrointestinal Problem Stated Complaint: NAUSEA / VOMITING Time Seen by Provider: 11/03/16 22:41 Source of Information: Reports: Patient History Limitations: Reports: No Limitations - History of Present Illness INITIAL COMMENTS - FREE TEXT/NARRATIVE: This patient comes in complaining of nausea. She has metastatic endometrial cancer and is undergoing chemotherapy. She's having a great deal of problems with nausea. She is out of the Zofran and her pharmacy refill a prescription even though she got into prescription here in the ER the other night. Apparently the insurance company denies. Insurance company has denied her scopolamine patch. She's not able to keep down Compazine. She has a number of other issues with the insurance company. Overall she's pretty miserable abd pain Pain Score (Numeric/FACES): 7 - Related Data Allergies Allergy/AdvReac Type Severity Reaction Status Date / Time No Known Allergies Allergy Verified 11/03/16 21:53 Home Meds: Home Meds *Cannibus PO ASDIRECTED 10/29/16 [History] *Cbd Oil ASDIRECTED 10/29/16 [History] *Doxil ASDIRECTED 10/29/16 [History] LORazepam [Ativan ORAL Concentrate 1MG/0.5 ML U/D] 1 mg PO Q4H PRN 10/29/16 [ History] Morphine [Morphine 10 MG/5 ML] 5 mg PO Q4H PRN 10/31/16 [History] Lidocaine 5% [Lidoderm 5%] 700 mg TOP Q24H #30 patch 11/01/16 [Rx] Ondansetron [Zofran Odt] 8 mg PO ASDIRECTED #30 tab.dis 11/01/16 [Rx] Prochlorperazine [Compazine] 10 mg PO TIDAC #90 tablet 11/01/16 [Rx] Scopolamine [Transderm-Scop] 1.5 mg TRDERM Q72H #10 patch 11/01/16 [Rx] Ondansetron [Zofran ODT] 4 mg PO Q8H #20 tab.dis 11/03/16 [Rx] Omeprazole 40 mg PO BID #30 cap.cr 11/08/16 [Rx] Past Medical History HEENT History: Reports: Hard of Hearing, Impaired Vision Cardiovascular History: Reports: Arrhythmia, Blood Clots/VTE/DVT, Other (See Below) Other Cardiovascular History: cardiovert Respiratory History: Reports: PE Gastrointestinal History: Reports: Chronic Constipation, Chronic Diarrhea, GERD 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: , 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 (See Below) Other OB/BYN History: endometrial cancer Other Hematologic History: ANEMIA Immunologic History: Reports: Immunosuppression Oncologic (Cancer) History: Reports: Other (See Below) Other Oncologic History: endometrial - Infectious Disease History Infectious Disease History: Reports: Chicken Pox, Measles, Mumps - Past Surgical History HEENT Surgical History: Reports: Other (See Below) Other HEENT Surgeries/Procedures: patch hole in ear drum Female Surgical History: Reports: Hysterectomy, Oophorectomy, Salpingo- Oophorectomy Social & Family History - Tobacco Use Smoking Status *Q: Never Smoker Second Hand Smoke Exposure: No - Caffeine Use Caffeine Use: Reports: None - Recreational Drug Use Recreational Drug Use: No Other Recreational Drug Type: cannibus oil subliqual Recreational Drug Use Frequency: Daily - Living Situation & Occupation Living situation: Reports: Occupation: Other (lives with Femi , who is the "[employer]", [place], [place], two grown children age 41 yr and 42 yrs. many grandchildren) ED ROS GENERAL - Review of Systems Review Of Systems: ROS reveals no pertinent complaints other than HPI. ED EXAM, GI/ABD - Physical Exam Exam: See Below Exam Limited By: No Limitations General Appearance: Alert, Mild Distress, Other (Pale with alopecia) Eyes: Bilateral: Normal Appearance Throat/Mouth: Normal Oropharynx Head: Atraumatic Neck: Normal Inspection Respiratory/Chest: Lungs Clear Cardiovascular: Regular Rate, Rhythm GI/Abdominal: Non-Tender Extremities: Normal Inspection Neurological: Alert, Oriented Course - Vital Signs Last Recorded V/S: Last Vital Signs Temp 36.9 C 11/03/16 22:02 Pulse 92 11/03/16 22:02 Resp 17 11/04/16 00:45 BP 95/43 L 11/04/16 01:57 Pulse Ox 92 L 11/04/16 00:15 - Orders/Labs/Meds Meds: Medications Discontinued Medications Generic Name Dose Route Start Last Admin Trade Name Freq PRN Reason Stop Dose Admin Heparin Sodium (Porcine) 500 units 11/04/16 01:52 11/04/16 01:55 Heparin Lock Flush 100 Units/Ml FLUSH 11/04/16 01:53 500 units ONETIME ONE Administration Heparin Sodium (Porcine) Confirm 11/04/16 01:52 11/04/16 01:56 Heparin Lock Flush 100 Units/Ml Administered 11/04/16 01:53 Not Given Dose 500 units .ROUTE .STK-MED ONE Prochlorperazine Edisylate 5 mg 11/03/16 22:56 11/03/16 23:18 Compazine IVPUSH 11/03/16 22:57 5 mg ONETIME ONE Administration - Re-Assessments/Exams Free Text/Narrative Re-Assessment/Exam: 11/08/16 16:17 an IV was established and she was given Compazine 5 mg. This did seem to help her quite a bit. We had a discussion about meds and she actually has some Phenergan suppositories at home which she hasn't tried she finally agreed that she would try the Phenergan suppositories. We did talk about EPS symptoms and the fact that she could use Benadryl if she has any problems Departure - Departure Time of Disposition: :27 Disposition: Home, Self-Care 01 Condition: Fair Clinical Impression: Endometrial carcinoma Intractable nausea and vomiting Qualifiers: Vomiting type: unspecified Qualified Code(s): R11.2 - Nausea with vomiting, unspecified - Discharge Information Instructions: Nausea and Vomiting, Adult Referrals: PCP,None [Primary Care Provider] - Forms: ED Department Discharge Additional Instructions: Try using the Phenergan or promethazine suppositories 25 or 50 mg every 6 hours. This medication is very similar to the Compazine that you received in the ER. Contact [employer] tomorrow and find out who is denying your prescriptions. You should then contact your senator and or congressman and tell them how your insurance company is denying you essential medications. It's very important that you talk to your senator and/or congressman since this could be beneficial in the fight over the healthcare legislation
[2016-11-04 01:58] VITALS: BP 95/43
== END 2016-11-04 01:58 | disposition home or self-care (01) ==
LOC: JP.ED 21:12
DX: R11.2 Nausea with vomiting, unspecified (principal); C54.1 Malignant neoplasm of endometrium; K21.9 Gastro-esophageal reflux disease without esophagitis; Z86.711 Personal history of pulmonary embolism; Z86.718 Personal history of other venous thrombosis and embolism; Z90.710 Acquired absence of both cervix and uterus; Z90.721 Acquired absence of ovaries, unilateral; Z98.890 Other specified postprocedural states; Z79.899 Other long term (current) drug therapy; Z86.2 Personal history of diseases of the blood and blood-forming organs and certain disorders involving the immune mechanism
CPT/HCPCS: 36415; 80053; 83735; 85025; 96361; 96374; 96375; 99284; A9270; J0780; J1170; J1642; J2060; J2405; J7050; J7120

== ENCOUNTER 2016-11-06 20:39 | Observation (INO) | payer BC ==
[2016-11-06] MEDS ORDERED: Sodium Chloride 0.9% 10 ML Syringe FLUSH PRN (22:20)
[2016-11-06] MEDS ORDERED: Prochlorperazine 10 MG/2 ML SDV IVPUSH ONE (22:21)
[2016-11-06] MEDS ORDERED: LORazepam 2 MG/ML MDV IVPUSH ONE (22:21)
--- NOTE | 2016-11-06 22:26 | EDM.PDOC ---
ED HPI GENERAL MEDICAL PROBLEM - General Chief Complaint: Gastrointestinal Problem Stated Complaint: NAUSEA/VOMITING Time Seen by Provider: 11/06/16 22:04 Source of Information: Reports: Patient, Family, RN Notes Reviewed History Limitations: Reports: No Limitations - History of Present Illness INITIAL COMMENTS - FREE TEXT/NARRATIVE: 60-year-old female presents emergency department day complaint nausea and vomiting, she is known history of endometrial cancer stage IV she has been recently completed a round of chemotherapy approximately 3 weeks prior but has had difficulty with significant nausea and vomiting, last evaluated in the ED 4 days prior same complaint has been using combination Ativan, Zofran and Compazine unfortunately over the last 24 hours it has progressively gotten worse denies any fever Abdomen Pain Score (Numeric/FACES): 7 - Related Data Allergies Allergy/AdvReac Type Severity Reaction Status Date / Time No Known Allergies Allergy Verified 11/03/16 21:53 Home Meds: Home Meds *Cannibus PO ASDIRECTED 10/29/16 [History] *Cbd Oil ASDIRECTED 10/29/16 [History] *Doxil ASDIRECTED 10/29/16 [History] LORazepam [Ativan ORAL Concentrate 1MG/0.5 ML U/D] 1 mg PO Q4H PRN 10/29/16 [ History] Morphine [Morphine 10 MG/5 ML] 5 mg PO Q4H PRN 10/31/16 [History] Lidocaine 5% [Lidoderm 5%] 700 mg TOP Q24H #30 patch 11/01/16 [Rx] Ondansetron [Zofran Odt] 8 mg PO ASDIRECTED #30 tab.dis 11/01/16 [Rx] Prochlorperazine [Compazine] 10 mg PO TIDAC #90 tablet 11/01/16 [Rx] Scopolamine [Transderm-Scop] 1.5 mg TRDERM Q72H #10 patch 11/01/16 [Rx] Ondansetron [Zofran ODT] 4 mg PO Q8H #20 tab.dis 11/03/16 [Rx] Past Medical History HEENT History: Reports: Hard of Hearing, Impaired Vision Cardiovascular History: Reports: Arrhythmia, Blood Clots/VTE/DVT, Other (See Below) Other Cardiovascular History: cardiovert Respiratory History: Reports: PE Gastrointestinal History: Reports: Chronic Constipation, Chronic Diarrhea, GERD PACKAGING OPERATOR History: Reports: , Other (See Below) Other OB/BYN History: endometrial cancer Other Hematologic History: ANEMIA Immunologic History: Reports: Immunosuppression Oncologic (Cancer) History: Reports: Other (See Below) Other Oncologic History: endometrial - Infectious Disease History Infectious Disease History: Reports: Chicken Pox, Measles, Mumps - Past Surgical History HEENT Surgical History: Reports: Other (See Below) Other HEENT Surgeries/Procedures: patch hole in ear drum Female Surgical History: Reports: Hysterectomy, Oophorectomy, Salpingo- Oophorectomy Social & Family History - Tobacco Use Smoking Status *Q: Never Smoker Second Hand Smoke Exposure: No - Caffeine Use Caffeine Use: Reports: None - Recreational Drug Use Recreational Drug Use: Yes Recreational Drug Type: Reports: Marijuana/Hashish Other Recreational Drug Type: cannibus oil subliqual Recreational Drug Use Frequency: Daily - Living Situation & Occupation Living situation: Reports: Occupation: Other (lives with Femi , who is the "[employer] Child [employer]rapist", [place], [place], two grown children age 41 yr and 42 yrs. many grandchildren) ED ROS GENERAL - Review of Systems Review Of Systems: See Below Constitutional: Denies: Fever, Chills HEENT: Reports: No Symptoms Respiratory: Reports: No Symptoms Cardiovascular: Reports: No Symptoms GI/Abdominal: Reports: Flatus, Nausea, Vomiting : Reports: No Symptoms Musculoskeletal: Reports: No Symptoms ED EXAM, GI/ABD - Physical Exam Exam: See Below Exam Limited By: No Limitations General Appearance: Alert, Active Emesis Respiratory/Chest: No Respiratory Distress, Lungs Clear, Normal Breath Sounds Cardiovascular: Regular Rate, Rhythm, No Murmur GI/Abdominal: Soft, Non-Tender Course - Vital Signs Last Recorded V/S: Last Vital Signs Temp 99.3 F 11/07/16 00:38 Pulse 95 11/07/16 00:38 Resp 16 11/07/16 00:38 BP 113/59 L 11/07/16 00:38 Pulse Ox 98 11/07/16 00:38 - Orders/Labs/Meds Orders: Active Orders 24 hr Category Date Time Status Peripheral IV Care [RC] . DIRECTED Care 11/06/16 22:20 Active Lactated Ringers [Ringers, Lactated] 1,000 ml Med 11/06/16 22:30 Active IV ASDIRECTED Lactated Ringers [Ringers, Lactated] 1,000 ml Med 11/07/16 00:12 Active IV BOLUS Potassium Chloride [KCL 20 MEQ in Water 100 ML] 20 meq Med 11/07/16 00:06 Active Premix Bag 1 bag IV ONETIME Sodium Chloride 0.9% [Saline Flush] Med 11/06/16 22:20 Active 10 ml FLUSH ASDIRECTED PRN Peripheral IV Insertion Adult [OM.PC] Urgent Oth 11/06/16 22:20 Ordered Medication Orders Lactated Ringer's (Ringers, Lactated) 1,000 mls @ 999 mls/hr IV ASDIRECTED PAU Last Admin: 11/06/16 23:05 Dose: 999 mls/hr Potassium Chloride 20 meq/ (Premix) 100 mls @ 50 mls/hr IV ONETIME ONE Stop: 11/07/16 02:05 Last Admin: 11/07/16 00:31 Dose: 50 mls/hr Lactated Ringer's (Ringers, Lactated) 1,000 mls @ 999 mls/hr IV BOLUS ONE Stop: 11/07/16 01:12 Last Admin: 11/07/16 00:30 Dose: 999 mls/hr Sodium Chloride (Saline Flush) 10 ml FLUSH ASDIRECTED PRN PRN Reason: Keep Vein Open Last Admin: 11/06/16 23:16 Dose: 10 ml Labs: Laboratory Tests 11/06/16 11/06/16 11/06/16 Range/Units 22:20 22:55 22:55 WBC 2.7 L (4.5-11.0) K/uL RBC 3.22 L (3.30-5.50) M/uL Hgb 8.3 L (12.0-15.0) g/dL Hct 27.2 L (36.0-48.0) % MCV 85 (80-98) fL MCH 26 L (27-31) pg MCHC 31 L (32-36) % Plt Count 418 H (150-400) K/uL Neut % (Auto) 57 (36-66) % Lymph % (Auto) 17 L (24-44) % [place] % (Auto) 24 H (2-6) % Eos % (Auto) 1 L (2-4) % Baso % (Auto) 1 (0-1) % Sodium 137 L (140-148) mmol/L Potassium 2.9 L* (3.6-5.2) mmol/L Chloride 99 L (100-108) mmol/L Carbon Dioxide 30 (21-32) mmol/L Anion Gap 10.9 (5.0-14.0) mmol/L BUN 5 L (7-18) mg/dL Creatinine 0.7 (0.6-1.0) mg/dL Est Cr Clr Drug Dosing 70.44 mL/min Estimated GFR (MDRD) > 60 (>60) Glucose 130 H (74-106) mg/dL Lactic Acid 0.8 (0.4-2.0) mmol/L Calcium 8.4 L (8.5-10.1) mg/dL Phosphorus (2.5-4.9) mg/dL Magnesium (1.8-2.4) mg/dL Total Bilirubin 0.4 (0.2-1.0) mg/dL AST 13 L (15-37) U/L ALT 11 L (12-78) U/L Alkaline Phosphatase 72 (46-116) U/L Total Protein 6.4 (6.4-8.2) g/dL Albumin 2.3 L (3.4-5.0) g/dL Globulin 4.1 H (2.3-3.5) g/dL Albumin/Globulin Ratio 0.6 L (1.2-2.2) 11/06/16 Range/Units 22:55 WBC (4.5-11.0) K/uL RBC (3.30-5.50) M/uL Hgb (12.0-15.0) g/dL Hct (36.0-48.0) % MCV (80-98) fL MCH (27-31) pg MCHC (32-36) % Plt Count (150-400) K/uL Neut % (Auto) (36-66) % Lymph % (Auto) (24-44) % [place] % (Auto) (2-6) % Eos % (Auto) (2-4) % Baso % (Auto) (0-1) % Sodium (140-148) mmol/L Potassium (3.6-5.2) mmol/L Chloride (100-108) mmol/L Carbon Dioxide (21-32) mmol/L Anion Gap (5.0-14.0) mmol/L BUN (7-18) mg/dL Creatinine (0.6-1.0) mg/dL Est Cr Clr Drug Dosing mL/min Estimated GFR (MDRD) (>60) Glucose (74-106) mg/dL Lactic Acid (0.4-2.0) mmol/L Calcium (8.5-10.1) mg/dL Phosphorus 3.3 (2.5-4.9) mg/dL Magnesium 1.4 L (1.8-2.4) mg/dL Total Bilirubin (0.2-1.0) mg/dL AST (15-37) U/L ALT (12-78) U/L Alkaline Phosphatase (46-116) U/L Total Protein (6.4-8.2) g/dL Albumin (3.4-5.0) g/dL Globulin (2.3-3.5) g/dL Albumin/Globulin Ratio (1.2-2.2) Meds: Medications Generic Name Dose Route Start Last Admin Trade Name Freq PRN Reason Stop Dose Admin Lactated Ringer's 1,000 mls @ 999 mls/hr 11/06/16 22:30 11/06/16 23:05 Ringers, Lactated IV 999 mls/hr ASDIRECTED PAU Administration Potassium Chloride 20 meq/ 100 mls @ 50 mls/hr 11/07/16 00:06 11/07/16 00:31 Premix IV 11/07/16 02:05 50 mls/hr ONETIME ONE Administration Lactated Ringer's 1,000 mls @ 999 mls/hr 11/07/16 00:12 11/07/16 00:30 Ringers, Lactated IV 11/07/16 01:12 999 mls/hr BOLUS ONE Administration Sodium Chloride 10 ml 11/06/16 22:20 11/06/16 23:16 Saline Flush FLUSH 10 ml ASDIRECTED PRN Administration Keep Vein Open Discontinued Medications Generic Name Dose Route Start Last Admin Trade Name Freq PRN Reason Stop Dose Admin Lidocaine HCl 5 ml 11/07/16 00:14 11/07/16 00:34 Xylocaine-Mpf 1% INJECT 11/07/16 00:15 Not Given ONETIME ONE Lorazepam 1 mg 11/06/16 22:21 11/06/16 23:15 Ativan IVPUSH 11/06/16 22:22 1 mg ONETIME ONE Administration Prochlorperazine Edisylate 5 mg 11/06/16 22:21 11/06/16 23:08 Compazine IVPUSH 11/06/16 22:22 5 mg ONETIME ONE Administration Departure - Departure Time of Disposition: 01:11 Disposition: Admitted As Inpatient 64 Condition: Poor Clinical Impression: Endometrial carcinoma, Adenocarcinoma of endometrium, stage 4 Intractable nausea and vomiting Qualifiers: Vomiting type: unspecified Qualified Code(s): R11.2 - Nausea with vomiting, unspecified - Discharge Information Forms: ED Department Discharge - My Orders Last 24 Hours: My Active Orders 11/06/16 22:20 Peripheral IV Care [RC] . DIRECTED Sodium Chloride 0.9% [Saline Flush] 10 ml FLUSH ASDIRECTED PRN Peripheral IV Insertion Adult [OM.PC] Urgent 11/06/16 22:30 Lactated Ringers [Ringers, Lactated] 1,000 ml IV ASDIRECTED 11/07/16 00:06 Potassium Chloride [KCL 20 MEQ in Water 100 ML] 20 meq Premix Bag 1 bag IV ONETIME 11/07/16 00:12 Lactated Ringers [Ringers, Lactated] 1,000 ml IV BOLUS - Assessment/Plan Last 24 Hours: My Active Orders 11/06/16 22:20 Peripheral IV Care [RC] . DIRECTED Sodium Chloride 0.9% [Saline Flush] 10 ml FLUSH ASDIRECTED PRN Peripheral IV Insertion Adult [OM.PC] Urgent 11/06/16 22:30 Lactated Ringers [Ringers, Lactated] 1,000 ml IV ASDIRECTED 11/07/16 00:06 Potassium Chloride [KCL 20 MEQ in Water 100 ML] 20 meq Premix Bag 1 bag IV ONETIME 11/07/16 00:12 Lactated Ringers [Ringers, Lactated] 1,000 ml IV BOLUS Plan: Assessment Acuity = acute Site and laterality = intractable nausea and vomiting complicated patient with known history of endometrial cancer stage IV status post chemotherapy Etiology = probably related to chemotherapy agent Manifestations = hypokalemia Location of injury = Home Lab values = WBC low at 2.7 consistent with leukopenia hemoglobin low at 8.3 consistent normochromic anemia sodium low at 137 consistent hyponatremia potassium low at 2.9 consistent with hypokalemia magnesium low at 1.4 consistent hypomagnesemia Plan Called discussed case with Dr. Summers physician area operations manager he agreed to come and evaluate the patient in the hospital she will be admitted observation bed for intractable nausea and vomiting Patient was in agreement with the plan all questions were answered, This note was dictated using [employer] voice recognition software please call with any questions.
[2016-11-06] MEDS ORDERED: Lactated Ringers 1,000 ML IV SCH (22:30)
[2016-11-07] MEDS ORDERED: Potassium Chloride 20 MEQ in Premix Bag 1 BAG IV ONE ×2 (00:06→01:15)
[2016-11-07] MEDS ORDERED: Lactated Ringers 1,000 ML IV ONE (00:12)
[2016-11-07] MEDS ORDERED: Prochlorperazine 10 MG/2 ML SDV IVPUSH PRN (01:15)
[2016-11-07] MEDS ORDERED: Magnesium Sulfate/Water 2 GM in Premix Bag 1 BAG IV ONE ×2 (01:15→11:30)
[2016-11-07] MEDS ORDERED: Morphine 10 MG/0.5 ML Oral Syringe PO PRN (01:30)
[2016-11-07] MEDS ORDERED: CANNIBUS PO SCH (01:30)
[2016-11-07] MEDS: Lactated Ringers 1,000 ML IV SCH ×3 (01:38→16:58)
[2016-11-07] MEDS: Ondansetron 4 MG/2 ML SDV IV PRN ×4 (02:44→17:53)
[2016-11-07] MEDS: Lidocaine 5% 700 MG Patch TOP SCH ×2 (02:50→22:27)
[2016-11-07] MEDS: LORazepam ORAL Concentrate 1MG/0.5ML U/D PO PRN ×3 (06:05→20:50)
[2016-11-07] MEDS: Enoxaparin 40 MG/0.4 ML Syringe SUBCUT SCH (08:36)
[2016-11-07] MEDS ORDERED: Enoxaparin 30 MG/0.3 ML Syringe SUBCUT SCH (09:00)
--- NOTE | 2016-11-07 12:04 | HP ---
IDENTIFYING DATA: Valeria Sandoval is a 60-year-old, female from [place]. CHIEF COMPLAINT: Nausea and vomiting. HISTORY OF PRESENT ILLNESS: This adult female has noted history of metastatic endometrial malignancy with previous surgical treatment including laparoscopic-assisted hysterectomy and bilateral salpingo-oophorectomy. She has had noted residual lung metastatic disease and seeks care at the [facility] in the [place] with weekly trips to [facility]. She reports recurring difficulty with chemo-induced anorexia, nausea, and emesis leading to intractable vomiting and generalized weakness. With ongoing symptoms, she presented to the emergency room. Today, she has had repeated visits to the emergency room with similar complaints. PAST MEDICAL HISTORY: Previous surgeries include abdominal hysterectomy. Denies other chronic health problems. She does have a history of mild visual impairment and bilateral hearing loss. She reports a history of DVT with accompanying pulmonary emboli one year ago leading to cardiac dysrhythmia and requiring cardioversion. She currently has no cardiac or respiratory complaints or disease. ALLERGIES: NONE NOTED. MEDICATIONS: CBD oil use for symptom management of nausea, lorazepam 1 mg q.4 hours p.r.n., morphine 5 mg q.4 hours p.r.n., lidocaine 5% patch applied every 24 hours, ondansetron 8 mg q.4 to 6 hours p.r.n. nausea, Compazine 10 mg t.i.d. a.c. p.r.n. nausea, and transdermal scopolamine patch applied every 3rd day. HABITS: Nonsmoker. No alcohol use. No routine use of caffeinated beverages. SOCIAL HISTORY: She and her are retired, residing with her daughter and adolescent granddaughter in their [place] residence. Family is providing necessary support and transportation. She does not have home care services. FAMILY HISTORY: Not obtained. REVIEW OF SYSTEMS: NEUROLOGIC: No headaches, strokes, or seizures noted. Mild visual impairment and hearing loss. CARDIAC: No history of hypertension, diabetes, heart disease, chest pain, or palpitations. RESPIRATORY: Denies cough, sputum production, shortness of breath, chest pain, fevers, or chills. GI: As above. No history of hepatitis, jaundice, or constipation. She does have recurring difficulty with diarrhea. : No urgency, frequency, or dysuria. PHYSICAL EXAMINATION: GENERAL: Appearance is that of a weakened adult female, currently resting comfortably. VITAL SIGNS: Initial vitals, temperature 99.3, pulse rate 95, respiratory rate 16, blood pressure 113/59, O2 saturations 98% on room air. HEENT: Hearing is diminished. Oral mucosa is dry in appearance. NECK: No adenopathy or thyromegaly. Brisk carotid pulses. No bruits. LUNGS: Clear, non tachypneic. HEART: Regular without murmurs or gallops. ABDOMEN: Soft. Active sounds heard. No palpable organomegaly. Generalized mild tenderness to palpation without guarding, rebound, or referred pain. No CVA tenderness. EXTREMITIES: Warm and pink. Good turgor. Good arterial pulses. Skin is dry and intact. No pitting edema. LABORATORY DATA: On admission, WBC 2.7, hemoglobin 8.3, platelet count 418,000. Sodium 137, potassium low at 2.9, BUN 5, creatinine 0.7, GFR greater than 60. Glucose 138, calcium 8.4, alkaline phosphatase 72, AST 13, and magnesium low at 1.4. IMPRESSIONS: 1. History of stage IV metastatic endometrial carcinoma. 2. Chemo-induced nausea, emesis, and anorexia. 3. Hypokalemia and hypomagnesemia secondary to recurrent emesis. 4. Hearing loss. PLAN: The patient is admitted to observation status for supportive care. Central line is in place at the left upper truncal area. We will provide IV fluids with potassium and magnesium supplementation. Followup labs with CBC, metabolic panel, and potassium and magnesium levels have been ordered. We will continue with administration of antiemetics and analgesic therapies as needed. Investigate possibility of candidacy for home care services to aid in home treatments including potential for home IV fluid infusions to manage dehydration, nausea, and emesis. Full code status is maintained at current time. Marty Summers MD /[id number]
[2016-11-07] MEDS: Potassium Chloride 20 MEQ Tab.ER PO ONE ×2 (12:21→13:29)
[2016-11-07] MEDS: Magnesium Oxide 400 MG Tab PO SCH ×2 (12:21→12:32)
[2016-11-07] MEDS ORDERED: Potassium Chloride 40 MEQ in Premix Bag 1 BAG IV ONE (12:29)
[2016-11-07] MEDS: Potassium Chloride 20 MEQ in Premix Bag 1 BAG IV SCH ×2 (14:12→16:16)
[2016-11-07] MEDS ORDERED: Potassium Chloride 20 MEQ Tab.ER PO ONE (18:00)
[2016-11-07] MEDS ORDERED: Scopolamine 1.5 MG Transdermal Patch TOP ONE (21:51)
[2016-11-07] MEDS ORDERED: Loperamide 2 MG Cap PO PRN (21:51)
--- NOTE | 2016-11-07 22:02 | PCM.SN ---
- Free Text/Narrative Note: time :2149 contacted by 2 [facility]. requesting scopolamine patch for nausea and imodium for diarrhea. 0; nausea with any movement. 3 diarrhea stools this evening a; nausea and diarrhea p; order scopolamine 1.5mg transderm patch. Imodium 2mg as directed advise to give dose of Ativan tonight for nausea and vomiting. lab; c-diff test on next stool continue present plan of care.
[2016-11-08] MEDS: Lactated Ringers 1,000 ML IV SCH ×2 (00:44→08:24)
[2016-11-08] MEDS: Lidocaine 5% 700 MG Patch TOP SCH (01:39)
[2016-11-08] MEDS: Ondansetron 4 MG/2 ML SDV IV PRN ×2 (04:23→08:23)
[2016-11-08] MEDS: Enoxaparin 40 MG/0.4 ML Syringe SUBCUT SCH (08:25)
[2016-11-08] MEDS ORDERED: VERIFY SCOP PATCH TOP SCH (09:00)
[2016-11-08] MEDS ORDERED: Magnesium Sulfate/Water 2 GM in Premix Bag 1 BAG IV ONE (09:30)
[2016-11-08] MEDS: LORazepam ORAL Concentrate 1MG/0.5ML U/D PO PRN ×2 (11:39→15:07)
--- NOTE | 2016-11-08 13:28 | PCM.DCSUM1 ---
Discharge Summary - Hospital Course Brief History: Ms. Sandoval is a 60-year-old woman who was admitted through the emergency department observation status for management of dehydration secondary to intractable nausea and vomiting. - Discharge Data Discharge Date: 11/08/16 Discharge Disposition: Home, Self-Care 01 Condition: Poor - Discharge Diagnosis/Problem(s) (1) Dehydration SNOMED Code(s): 63602425 ICD Code: E86.0 - DEHYDRATION Status: Acute Current Visit: Yes (2) Intractable nausea and vomiting SNOMED Code(s): 835504647, 896907348 ICD Code: R11.2 - NAUSEA WITH VOMITING, UNSPECIFIED Status: Acute Current Visit: Yes Qualifiers: Vomiting type: unspecified Qualified Code(s): R11.2 - Nausea with vomiting , unspecified (3) Adenocarcinoma of endometrium, stage 4 SNOMED Code(s): 366778938 ICD Code: C54.1 - MALIGNANT NEOPLASM OF ENDOMETRIUM Status: Chronic Priority: High Current Visit: Yes - Patient Summary/Data Hospital Course: Ms. Sandoval is a 60-year-old woman with a known history of stage IV endometrial carcinoma. She had received chemotherapy in August and September of this year, since then has had ongoing difficulty with abdominal pain as well as nausea vomiting. Oral intake has been especially poor, she is able to get liquids in but any type of solid food causes nausea and vomiting. She was admitted to observation status by Dr. Summers, given antiemetic therapy as well as IV fluids. She is feeling somewhat better in the current plan is to try and set up home infusion on an every other day basis to try and keep her hydrated. She was also found to have hypokalemia and hypomagnesemia, electrolytes have been replaced. Magnesium level this morning was still low but she is receiving further magnesium infusion at the present time. Hemoglobin was found to be low this morning and she will be transfused one unit of red blood cells prior to discharge. She also will be started on omeprazole 40 mg twice daily for 2 weeks then once daily thereafter. She will try to hold off on solids and most of her nutrition with liquids. We found that she was able to tolerate the fruit juice flavored and sure and she will try and get 68 ounce cartons in a day as well as Gatorade and other liquids to keep herself hydrated. There is already an appointment scheduled tomorrow with Dr. Brown at the clinic, home care will be set up at that time as well as intermittent home infusions as described above. She also has a follow-up appointment coming up this week in [place] to see gastroenterology as well as follow-up with her oncologist. Diet will be mainly liquids with nutritional supplements as described above, activity will be as tolerated. - Patient Instructions Diet: Usual Diet as Tolerated Activity: As Tolerated Other/Special Instructions: Has appt tomorrow with Dr. Brown - Discharge Plan Prescriptions/Med Rec: Omeprazole 40 mg PO BID #30 cap.cr Home Medications: Home Meds *Cannibus PO ASDIRECTED 10/29/16 [History] *Cbd Oil ASDIRECTED 10/29/16 [History] *Doxil ASDIRECTED 10/29/16 [History] LORazepam [Ativan ORAL Concentrate 1MG/0.5 ML U/D] 1 mg PO Q4H PRN 10/29/16 [ History] Morphine [Morphine 10 MG/5 ML] 5 mg PO Q4H PRN 10/31/16 [History] Lidocaine 5% [Lidoderm 5%] 700 mg TOP Q24H #30 patch 11/01/16 [Rx] Ondansetron [Zofran Odt] 8 mg PO ASDIRECTED #30 tab.dis 11/01/16 [Rx] Prochlorperazine [Compazine] 10 mg PO TIDAC #90 tablet 11/01/16 [Rx] Scopolamine [Transderm-Scop] 1.5 mg TRDERM Q72H #10 patch 11/01/16 [Rx] Ondansetron [Zofran ODT] 4 mg PO Q8H #20 tab.dis 11/03/16 [Rx] Omeprazole 40 mg PO BID #30 cap.cr 11/08/16 [Rx] Referrals: Carly Brown MD [Physician] - - Patient Data Vitals - Most Recent: Last Vital Signs Temp 98.4 F 11/08/16 13:18 Pulse 87 11/08/16 13:18 Resp 20 11/08/16 13:18 BP 113/56 L 11/08/16 13:18 Pulse Ox 94 L 11/08/16 10:31 Weight - Most Recent: 168 lb 3 oz I&O - Last 24 hours: Intake & Output 11/07/16 11/08/16 11/08/16 22:59 06:59 14:59 Intake Total 2066 1380 0 Output Total 1100 800 Balance 966 580 0 Lab Results - Last 24 hrs: Laboratory Results - last 24 hr 11/08/16 11/08/16 11/08/16 Range/Units 05:15 05:15 08:40 WBC 2.2 L (4.5-11.0) K/uL RBC 2.86 L (3.30-5.50) M/uL Hgb 7.3 L (12.0-15.0) g/dL Hct 24.5 L (36.0-48.0) % MCV 86 (80-98) fL MCH 26 L (27-31) pg MCHC 30 L (32-36) % Plt Count 363 (150-400) K/uL Neut % (Auto) 60 (36-66) % Lymph % (Auto) 17 L (24-44) % [place] % (Auto) 21 H (2-6) % Eos % (Auto) 1 L (2-4) % Baso % (Auto) 1 (0-1) % Sodium 137 L (140-148) mmol/L Potassium 3.7 (3.6-5.2) mmol/L Chloride 101 (100-108) mmol/L Carbon Dioxide 27 (21-32) mmol/L Anion Gap 12.7 (5.0-14.0) mmol/L BUN 2 L D (7-18) mg/dL Creatinine 0.6 (0.6-1.0) mg/dL Est Cr Clr Drug Dosing 82.18 mL/min Estimated GFR (MDRD) > 60 (>60) Glucose 116 H (74-106) mg/dL Calcium 8.3 L (8.5-10.1) mg/dL Magnesium 1.6 L (1.8-2.4) mg/dL Blood Type A POSITIVE Gel Antibody Screen Negative Crossmatch See Detail Med Orders - Current: Current Medications Enoxaparin Sodium (Lovenox) 40 mg SUBCUT DAILY [facility] Last Admin: 11/08/16 08:25 Dose: 40 mg Lactated Ringer's (Ringers, Lactated) 1,000 mls @ 125 mls/hr IV ASDIRECTED [facility] Last Admin: 11/08/16 08:24 Dose: 125 mls/hr Lidocaine (Lidoderm 5%) 700 mg TOP Q24H PAU Last Admin: 11/08/16 01:39 Dose: Not Given Loperamide HCl (Imodium) 2 mg PO ASDIRECTED PRN PRN Reason: Diarrhea Last Admin: 11/07/16 22:00 Dose: 2 mg Lorazepam (Ativan Oral Concentrate 1mg/0.5 Ml U/D) 1 mg PO Q4H PRN PRN Reason: Nausea Last Admin: 11/08/16 11:39 Dose: 1 mg Miscellaneous Information (Remove Patch) 1 ea TRDERM Q24H PAU Last Admin: 11/07/16 14:13 Dose: 1 ea Morphine Sulfate (Morphine 10 Mg/0.5 Ml Oral Syringe) 5 mg PO Q4H PRN PRN Reason: PAIN Last Admin: 11/07/16 02:41 Dose: 5 mg Non-Formulary Medication (*Cannibus) 1 unit PO ASDIRECTED PAU Verify Scop Patch 0 each TOP DAILY [facility] Last Admin: 11/08/16 08:25 Dose: Not Given Ondansetron HCl (Zofran) 4 mg IV Q4H PRN PRN Reason: Nausea/Vomiting Last Admin: 11/08/16 08:23 Dose: 4 mg Prochlorperazine Edisylate (Compazine) 5 mg IVPUSH Q6H PRN PRN Reason: Nausea/Vomiting Last Admin: 11/07/16 19:39 Dose: 5 mg Sodium Chloride (Saline Flush) 10 ml FLUSH ASDIRECTED PRN PRN Reason: Keep Vein Open Last Admin: 11/06/16 23:16 Dose: 10 ml Discontinued Medications Lactated Ringer's (Ringers, Lactated) 1,000 mls @ 999 mls/hr IV ASDIRECTED PAU Last Admin: 11/06/16 23:05 Dose: 999 mls/hr Potassium Chloride 20 meq/ (Premix) 100 mls @ 50 mls/hr IV ONETIME ONE Stop: 11/07/16 02:05 Last Admin: 11/07/16 00:31 Dose: 50 mls/hr Lactated Ringer's (Ringers, Lactated) 1,000 mls @ 999 mls/hr IV BOLUS ONE Stop: 11/07/16 01:12 Last Admin: 11/07/16 00:30 Dose: 999 mls/hr Magnesium Sulfate 2 gm/ Premix 50 mls @ 12.5 mls/hr IV ONETIME ONE Stop: 11/07/16 05:14 Last Admin: 11/07/16 05:31 Dose: 12.5 mls/hr Potassium Chloride 20 meq/ (Premix) 100 mls @ 50 mls/hr IV ONETIME ONE Stop: 11/07/16 03:14 Last Admin: 11/07/16 03:07 Dose: 50 mls/hr Magnesium Sulfate 2 gm/ Premix 50 mls @ 25 mls/hr IV ONETIME ONE Stop: 11/07/16 13:29 Last Admin: 11/07/16 11:08 Dose: 25 mls/hr Potassium Chloride 20 meq/ (Premix) 100 mls @ 50 mls/hr IV Q2H [facility] Stop: 11/07/16 17:59 Last Admin: 11/07/16 16:16 Dose: 50 mls/hr Magnesium Sulfate 2 gm/ Premix 50 mls @ 25 mls/hr IV ONETIME ONE Stop: 11/08/16 11:29 Last Admin: 11/08/16 09:21 Dose: 25 mls/hr Lidocaine HCl (Xylocaine-Mpf 1%) 5 ml INJECT ONETIME ONE Stop: 11/07/16 00:15 Last Admin: 11/07/16 00:34 Dose: Not Given Lorazepam (Ativan) 1 mg IVPUSH ONETIME ONE Stop: 11/06/16 22:22 Last Admin: 11/06/16 23:15 Dose: 1 mg Magnesium Oxide (Magnesium Oxide) 400 mg PO BID [facility] Last Admin: 11/07/16 12:32 Dose: Not Given Potassium Chloride (Klor-Con M20) 40 meq PO ONETIME ONE Stop: 11/07/16 12:01 Last Admin: 11/07/16 13:29 Dose: Not Given Potassium Chloride (Klor-Con M20) 40 meq PO ONETIME ONE Stop: 11/07/16 18:01 Prochlorperazine Edisylate (Compazine) 5 mg IVPUSH ONETIME ONE Stop: 11/06/16 22:22 Last Admin: 11/06/16 23:08 Dose: 5 mg Scopolamine (Transderm-Scop) 1.5 mg TOP ONETIME ONE Stop: 11/07/16 21:52 Last Admin: 11/07/16 22:00 Dose: 1.5 mg *Q Meaningful Use (DIS) - VTE *Q VTE Criteria *Q: - Stroke *Q Stroke Criteria *Q: - AMI *Q AMI Criteria *Q:
[2016-11-08 14:22] VITALS: BP 111/61
== END 2016-11-08 15:08 | disposition home or self-care (01) ==
LOC: JP.ED 20:39 → JP.MS 11-07 01:12
PROVIDERS: ADMIT Family Medicine; ATTEND Hospitalist
DX: E86.0 Dehydration (principal); R11.2 Nausea with vomiting, unspecified; C54.1 Malignant neoplasm of endometrium; K21.9 Gastro-esophageal reflux disease without esophagitis; Z86.718 Personal history of other venous thrombosis and embolism; Z90.721 Acquired absence of ovaries, unilateral; Z90.710 Acquired absence of both cervix and uterus; Z79.899 Other long term (current) drug therapy; Z86.2 Personal history of diseases of the blood and blood-forming organs and certain disorders involving the immune mechanism
CPT/HCPCS: 36415; 36430; 80048; 80053; 83605; 83735; 84100; 85025; 86850; 86900; 86901; 86920; 86922; 96361; 96365; 96366; 96367; 96372; 96375; 96376; 99284; A9270; G0378; J0780; J1650; J2060; J2405; J3475; J3480; J7050; J7120; P9016; 96374

== ENCOUNTER 2016-11-09 14:59 | Emergency (ER) | payer BC ==
[2016-11-09] MEDS ORDERED: Lactated Ringers 1,000 ML IV ONE (16:00)
[2016-11-09] MEDS ORDERED: Ondansetron 4 MG/2 ML SDV IVPUSH ONE (16:01)
[2016-11-09] MEDS ORDERED: HYDROmorphone 0.5 MG/0.5 ML Syringe IVPUSH ONE (16:02)
[2016-11-09] MEDS ORDERED: LORazepam 2 MG/ML MDV IVPUSH ONE (16:02)
--- NOTE | 2016-11-09 16:25 | EDM.PDOC ---
ED HPI GENERAL MEDICAL PROBLEM - General Chief Complaint: General Stated Complaint: NAUSEA VOMITING Time Seen by Provider: 11/09/16 15:50 Source of Information: Reports: Patient, Family History Limitations: Reports: No Limitations - History of Present Illness INITIAL COMMENTS - FREE TEXT/NARRATIVE: Valeria presents to the ER today with complaints of nausea and vomiting. She states nausea and vomiting started this am at 1000. She also reports use of scopolamine patch has not assisted her nausea. Valeria states she is not able to keep any liquids or food down. Onset: Today Onset Date: 11/09/16 Onset Time: 10:00 Duration: Hour(s): - Related Data Allergies Allergy/AdvReac Type Severity Reaction Status Date / Time No Known Allergies Allergy Verified 11/03/16 21:53 Home Meds: Home Meds *Cannibus PO ASDIRECTED 10/29/16 [History] *Cbd Oil ASDIRECTED 10/29/16 [History] *Doxil ASDIRECTED 10/29/16 [History] LORazepam [Ativan ORAL Concentrate 1MG/0.5 ML U/D] 1 mg PO Q4H PRN 10/29/16 [ History] Morphine [Morphine 10 MG/5 ML] 5 mg PO Q4H PRN 10/31/16 [History] Lidocaine 5% [Lidoderm 5%] 700 mg TOP Q24H #30 patch 11/01/16 [Rx] Ondansetron [Zofran Odt] 8 mg PO ASDIRECTED #30 tab.dis 11/01/16 [Rx] Prochlorperazine [Compazine] 10 mg PO TIDAC #90 tablet 11/01/16 [Rx] Scopolamine [Transderm-Scop] 1.5 mg TRDERM Q72H #10 patch 11/01/16 [Rx] Ondansetron [Zofran ODT] 4 mg PO Q8H #20 tab.dis 11/03/16 [Rx] Omeprazole 40 mg PO BID #30 cap.cr 11/08/16 [Rx] Past Medical History HEENT History: Reports: Hard of Hearing, Impaired Vision Cardiovascular History: Reports: Arrhythmia, Blood Clots/VTE/DVT, Other (See Below) Other Cardiovascular History: cardiovert Respiratory History: Reports: PE Gastrointestinal History: Reports: Chronic Constipation, Chronic Diarrhea, GERD 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: , Other (See Below) Other OB/BYN History: endometrial cancer Other Hematologic History: ANEMIA Immunologic History: Reports: Immunosuppression Oncologic (Cancer) History: Reports: Other (See Below) Other Oncologic History: endometrial - Infectious Disease History Infectious Disease History: Reports: Chicken Pox - Past Surgical History HEENT Surgical History: Reports: Other (See Below) Other HEENT Surgeries/Procedures: patch hole in ear drum Female Surgical History: Reports: Hysterectomy, Oophorectomy, Salpingo- Oophorectomy Social & Family History - Family History Family Medical History: Unobtainable - Tobacco Use Smoking Status *Q: Never Smoker Second Hand Smoke Exposure: No - Caffeine Use Caffeine Use: Reports: None - Recreational Drug Use Recreational Drug Use: No Recreational Drug Type: Reports: Marijuana/Hashish Other Recreational Drug Type: cannibus oil subliqual Recreational Drug Use Frequency: Daily - Living Situation & Occupation Living situation: Reports: Occupation: Other (lives with Femi , who is the "[employer]", [place], [place], two grown children age 41 yr and 42 yrs. many grandchildren) ED ROS GENERAL - Review of Systems Review Of Systems: See Below Constitutional: Reports: Malaise. Denies: Fever, Chills, Weakness HEENT: Reports: No Symptoms Respiratory: Denies: Shortness of Breath, Wheezing, Cough, Sputum, Hemoptysis Cardiovascular: Denies: Chest Pain, Dyspnea on Exertion, Edema, Lightheadedness , Orthopnea, Palpitations, PND, Syncope Endocrine: Reports: Fatigue. Denies: Polydypsia, Polyuria GI/Abdominal: Reports: Abdominal Pain, Constipation, Flatus, Nausea, Vomiting, Other (Patient complains of abdominal pain with vomiting. ). Denies: Black Stool, Bloody Stool, Diarrhea, Difficulty Swallowing, Hematemesis, Hematochezia : Denies: Dysuria, Flank Pain, Frequency, Hematuria, Pain, Urgency, Urinary Retention Musculoskeletal: Reports: No Symptoms Skin: Denies: Cyanosis, Jaundice, Mottled, Diaphoresis, Bruising, Pruritis, Rash , Erythema, Wound Neurological: Reports: Weakness. Denies: Confusion, Dizziness, Headache, Numbness, Paresthesia, Seizure, Gait Disturbance Psychiatric: Reports: No Symptoms Hematologic/Lymphatic: Reports: No Symptoms Immunologic: Reports: No Symptoms ED EXAM, GENERAL - Physical Exam Exam: See Below Free Text/Narrative:: Valeria is a 60 year old female presenting to the ER today with nausea and vomiting since 1000 today. She has a history of metastatic endometrial malignancy with previous surgical treatment including laparoscopic assisted hysterectomy and bilateral salpingo- oophrectomy, noted residual lung metastatic disease. She is currently receiving treatment at the [facility] in [place]. She has not been able to keep anything PO down. She has a history of intractable nausea and vomiting, hypomagnesia, hypokalemia with most recent hospitalization on 11/07/16. At discharge: WBC 2.2 Hgb 7.3 (had blood transfusion of 1 unit PRBC) Potassium 3.7 Sodium 137 BUN 2 L D Creat 0.6 calcium 8.3 Magnesium 1.6 Exam Limited By: No Limitations General Appearance: Alert, WD/WN, No Apparent Distress Eye Exam: Bilateral Eye: EOMI, PERRL Ears: Normal External Exam, Normal Canal, Hearing Grossly Normal, Normal TMs Ear Exam: Bilateral Ear: Auricle Normal, Canal Normal, TM normal Nose: Normal Inspection, Normal Mucosa, No Blood Throat/Mouth: Normal Inspection, Normal Lips, Normal Teeth, Normal Gums, Normal Oropharynx, Normal Voice, No Airway Compromise Head: Atraumatic, Normocephalic Neck: Normal Inspection, Supple, Non-Tender, Full Range of Motion Respiratory/Chest: No Respiratory Distress, Lungs Clear, Normal Breath Sounds, No Accessory Muscle Use, Chest Non-Tender Cardiovascular: Normal Peripheral Pulses, Regular Rate, Rhythm, No Gallop, No Murmur, No Rub, Other (1+ edema bilateral lower extremities. ) Peripheral Pulses: 2+: Radial (L), Radial (R), Dorsalis Pedis (L), Dorsalis Pedis (R) GI/Abdominal: Soft, Non-Tender, No Organomegaly, No Distention, No Mass, Other ( decreased bowel sounds, patient is passing flatus without difficulty. ) Back Exam: Normal Inspection, Full Range of Motion. No: CVA Tenderness (R), CVA Tenderness (L) Extremities: Normal Inspection, Normal Range of Motion, Non-Tender, No Pedal Edema, Normal Capillary Refill Neurological: Alert, Oriented, CN II-XII Intact, Normal Cognition, Normal Gait, No Motor/Sensory Deficits Psychiatric: Normal Affect, Normal Mood Skin Exam: Warm, Dry, Intact, Normal Color, No Rash Lymphatic: No Adenopathy Course - Vital Signs Last Recorded V/S: Last Vital Signs Temp 37.4 C 11/09/16 15:15 Pulse 87 11/09/16 20:15 Resp 18 11/09/16 20:15 BP 108/45 L 11/09/16 20:15 Pulse Ox 92 L 11/09/16 20:15 - Orders/Labs/Meds Orders: Active Orders 24 hr Category Date Time Status UA W/MICROSCOPIC [URIN] Stat Lab 11/09/16 15:59 Uncollected Labs: Laboratory Tests 11/09/16 11/09/16 11/09/16 Range/Units 16:28 16:28 16:28 WBC 3.4 L (4.5-11.0) K/uL RBC 3.52 (3.30-5.50) M/uL Hgb 9.4 L D (12.0-15.0) g/dL Hct 29.8 L (36.0-48.0) % MCV 85 (80-98) fL MCH 27 (27-31) pg MCHC 32 (32-36) % Plt Count 359 (150-400) K/uL Neut % (Auto) 65 (36-66) % Lymph % (Auto) 12 L (24-44) % [place] % (Auto) 20 H (2-6) % Eos % (Auto) 1 L (2-4) % Baso % (Auto) 1 (0-1) % Sodium 136 L (140-148) mmol/L Potassium 3.7 (3.6-5.2) mmol/L Chloride 100 (100-108) mmol/L Carbon Dioxide 29 (21-32) mmol/L Anion Gap 10.7 (5.0-14.0) mmol/L BUN 7 D (7-18) mg/dL Creatinine 0.6 (0.6-1.0) mg/dL Est Cr Clr Drug Dosing 81.78 mL/min Estimated GFR (MDRD) > 60 (>60) Glucose 114 H (74-106) mg/dL Calcium 8.5 (8.5-10.1) mg/dL Magnesium 1.5 L (1.8-2.4) mg/dL Total Bilirubin 0.5 (0.2-1.0) mg/dL AST 14 L (15-37) U/L ALT 10 L (12-78) U/L Alkaline Phosphatase 71 (46-116) U/L Total Protein 6.2 L (6.4-8.2) g/dL Albumin 2.3 L (3.4-5.0) g/dL Globulin 3.9 H (2.3-3.5) g/dL Albumin/Globulin Ratio 0.6 L (1.2-2.2) Meds: Medications Discontinued Medications Generic Name Dose Route Start Last Admin Trade Name Freosvaldo PRN Reason Stop Dose Admin Diphenhydramine HCl 25 mg 11/09/16 18:36 11/09/16 18:56 Benadryl IVPUSH 11/09/16 18:37 25 mg ONETIME ONE Administration Heparin Sodium (Porcine) 500 units 11/09/16 21:02 Heparin Lock Flush 100 Units/Ml FLUSH 11/09/16 21:03 ASDIRECTED ONE Hydromorphone HCl 0.5 mg 11/09/16 16:02 11/09/16 16:34 Dilaudid IVPUSH 11/09/16 16:03 0.5 mg ONETIME ONE Administration Lactated Ringer's 1,000 mls @ 999 mls/hr 11/09/16 16:00 11/09/16 16:33 Ringers, Lactated IV 11/09/16 17:00 999 mls/hr BOLUS ONE Administration Magnesium Sulfate 2 gm/ Premix 50 mls @ 12.5 mls/hr 11/09/16 16:57 11/09/16 17:16 IV 11/09/16 20:56 12.5 mls/hr ONETIME ONE Administration Lorazepam 1 mg 11/09/16 16:02 11/09/16 16:34 Ativan IVPUSH 11/09/16 16:03 1 mg ONETIME ONE Administration Ondansetron HCl 4 mg 11/09/16 16:01 11/09/16 16:33 Zofran IVPUSH 11/09/16 16:02 4 mg ONETIME ONE Administration Pantoprazole Sodium 40 mg 11/09/16 17:02 11/09/16 17:16 Protonix Iv IVPUSH 11/09/16 17:03 40 mg ONETIME ONE Administration Promethazine HCl 25 mg 11/09/16 18:48 11/09/16 18:55 Phenergan IM 11/09/16 18:49 25 mg ONETIME ONE Administration Scopolamine 1.5 mg 11/09/16 18:35 11/09/16 18:57 Transderm-Scop TOP 11/09/16 18:36 1.5 mg ONETIME ONE Administration - Re-Assessments/Exams Free Text/Narrative Re-Assessment/Exam: 11/09/16 16:00 We will access her port, provide pain, antiemetic, fluids and ativan IV. Lab work pending. Free Text/Narrative Re-Assessment/Exam: 11/09/16 18:25 Patient lab work and status reviewed with Dr. Farrar. Patient will be given antiemetic IM, benadryl IV and be discharged with scopolamine patch. Free Text/Narrative Re-Assessment/Exam: 11/09/16 20:55 Patient reports improvement in nausea and pain. Departure - Departure Time of Disposition: 18:48 Disposition: Home, Self-Care 01 Condition: Fair Clinical Impression: Intractable nausea and vomiting - Discharge Information Instructions: Nausea and Vomiting, Adult Referrals: Carly Brown MD [Primary Care Provider] - Forms: ED Department Discharge Additional Instructions: Valeria's status was reviewed with Dr. Farrar, there are no indicators for hospital admission at this time. Push oral fluids when able, clear liquid diet, take medications as directed. Patient will keep scopolamine patch on, picker previously prescribed medication as directed and report to her providers in [place] as directed. Watch breathing and respirations carefully with use of lorazepam and nausea medications. Return for worsening. - My Orders Last 24 Hours: My Active Orders 11/09/16 15:59 UA W/MICROSCOPIC [URIN] Stat - Assessment/Plan Last 24 Hours: My Active Orders 11/09/16 15:59 UA W/MICROSCOPIC [URIN] Stat Assessment:: Intractable nausea and vomiting Improvement after fluid hydration, magnesium, and antiemetic. Plan: Valeria's status was reviewed with Dr. Farrar, there are no indicators for hospital admission at this time. Push oral fluids when able, clear liquid diet, take medications as directed. Patient will keep scopolamine patch on, picker previously prescribed medication as directed and report to her providers in [place] as directed. Watch breathing and respirations carefully with use of lorazepam and nausea medications. Return for worsening.
[2016-11-09] MEDS ORDERED: Magnesium Sulfate/Water 2 GM in Premix Bag 1 BAG IV ONE (16:57)
[2016-11-09] MEDS ORDERED: Pantoprazole 40 MG Vial IVPUSH ONE (17:02)
[2016-11-09] MEDS ORDERED: Scopolamine 1.5 MG Transdermal Patch TOP ONE (18:35)
[2016-11-09] MEDS ORDERED: diphenhydrAMINE 50 MG/ML SDV IVPUSH ONE (18:36)
[2016-11-09] MEDS ORDERED: Promethazine 25 MG/ML SDV IM ONE (18:48)
[2016-11-09] MEDS ORDERED: Sodium Chloride 0.9% 10 ML Syringe FLUSH ONE (21:14)
[2016-11-09 21:22] VITALS: BP 113/60
== END 2016-11-09 21:26 | disposition home or self-care (01) ==
LOC: JP.ED 14:59
DX: R11.2 Nausea with vomiting, unspecified (principal); H54.7 Unspecified visual loss; K21.9 Gastro-esophageal reflux disease without esophagitis; D64.9 Anemia, unspecified; Z90.710 Acquired absence of both cervix and uterus
CPT/HCPCS: 36415; 80053; 83735; 85025; 96361; 96372; 96374; 96375; 99284; A9270; C1751; C9113; J1170; J1200; J1642; J2060; J2405; J2550; J3475; J7050; J7120

== ENCOUNTER 2016-11-21 11:18 | Emergency (ER) | payer BC ==
[2016-11-21 11:42] VITALS: BP 127/64
--- NOTE | 2016-11-21 12:19 | EDM.PDOC ---
[id number] Complaint: NAUSA CANCER PATIENT Time Seen by Provider: 11/21/16 12:11 Source of Information: Reports: Patient History Limitations: Reports: No Limitations - History of Present Illness INITIAL COMMENTS - FREE TEXT/NARRATIVE: 60-year-old female with metastatic endometrial cancer who has a port and is on TPN. She has significant gastritis with persistent nausea and vomiting for the past 3 months. She is supposed to be taking Compazine orally as well as Protonix orally, the last several days she's refusing to take it because it just makes her feel so sick. Her blood sugars are up and somewhat higher than usual at around 200-250 which is worrying her . He is just wondering if there is anything we can do to make her feel better. She is not having any fevers or chills. She is having some upper abdominal pain but that is not new. Location: Reports: Abdomen Quality: Reports: Ache Severity: Moderate Worsens with: Reports: Other (Vomiting) Associated Symptoms: Reports: Malaise, Nausea/Vomiting, Weakness. Denies: Chest Pain, Cough, Fever/Chills - Related Data Allergies Allergy/AdvReac Type Severity Reaction Status Date / Time No Known Allergies Allergy Verified 11/03/16 21:53 Home Meds: Home Meds *Cannibus PO ASDIRECTED 10/29/16 [History] *Cbd Oil ASDIRECTED 10/29/16 [History] *Doxil ASDIRECTED 10/29/16 [History] LORazepam [Ativan ORAL Concentrate 1MG/0.5 ML U/D] 1 mg PO Q4H PRN 10/29/16 [ History] Morphine [Morphine 10 MG/5 ML] 5 mg PO Q4H PRN 10/31/16 [History] Lidocaine 5% [Lidoderm 5%] 700 mg TOP Q24H #30 patch 11/01/16 [Rx] Ondansetron [Zofran Odt] 8 mg PO ASDIRECTED #30 tab.dis 11/01/16 [Rx] Prochlorperazine [Compazine] 10 mg PO TIDAC #90 tablet 11/01/16 [Rx] Scopolamine [Transderm-Scop] 1.5 mg TRDERM Q72H #10 patch 11/01/16 [Rx] Ondansetron [Zofran ODT] 4 mg PO Q8H #20 tab.dis 11/03/16 [Rx] Omeprazole 40 mg PO BID #30 cap.cr 11/08/16 [Rx] Sodium/K+/Mag/Ca/Chlor/Acetate [TPN Electrolytes II IV Soln] 11/21/16 [History] Past Medical History HEENT History: Reports: Hard of Hearing, Impaired Vision Cardiovascular History: Reports: Arrhythmia, Blood Clots/VTE/DVT, Other (See Below) Other Cardiovascular History: cardiovert Respiratory History: Reports: PE Gastrointestinal History: Reports: Chronic Constipation, Chronic Diarrhea, GERD 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: , 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 (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) Other OB/BYN History: endometrial cancer Other Hematologic History: ANEMIA Immunologic History: Reports: Immunosuppression Oncologic (Cancer) History: Reports: Other (See Below) Other Oncologic History: endometrial - Infectious Disease History Infectious Disease History: Reports: Chicken Pox - Past Surgical History HEENT Surgical History: Reports: Other (See Below) Other HEENT Surgeries/Procedures: patch hole in ear drum Female Surgical History: Reports: Hysterectomy, Oophorectomy, Salpingo- Oophorectomy Social & Family History - Family History Family Medical History: Unobtainable - Tobacco Use Smoking Status *Q: Never Smoker Second Hand Smoke Exposure: No - Caffeine Use Caffeine Use: Reports: None - Recreational Drug Use Recreational Drug Use: No Recreational Drug Type: Reports: Marijuana/Hashish Other Recreational Drug Type: cannibus oil subliqual Recreational Drug Use Frequency: Daily - Living Situation & Occupation Living situation: Reports: Occupation: Other (lives with Femi , who is the "[employer]", [place], [place], two grown children age 41 yr and 42 yrs. many grandchildren) ED ROS GENERAL - Review of Systems Review Of Systems: See Below Constitutional: Reports: Malaise, Weakness, Decreased Appetite. Denies: Fever, Chills Respiratory: Denies: Shortness of Breath Cardiovascular: Denies: Chest Pain GI/Abdominal: Reports: Abdominal Pain, Diarrhea, Decreased Appetite Skin: Reports: Pallor Hematologic/Lymphatic: Reports: Other (Patient is not diabetic but is having higher blood glucose from the TPN) ED EXAM, GENERAL - Physical Exam Exam: See Below Exam Limited By: No Limitations General Appearance: Alert, No Apparent Distress Eye Exam: Bilateral Eye: EOMI Respiratory/Chest: No Respiratory Distress, Lungs Clear Cardiovascular: Regular Rate, Rhythm GI/Abdominal: Soft, Tender (Reaction with tenderness to palpation across the upper abdomen soft, somewhat worse on the right) Neurological: Alert, Oriented Psychiatric: Flat Affect Skin Exam: Warm, Dry Course - Vital Signs Last Recorded V/S: Last Vital Signs Temp 98.8 F 11/21/16 11:55 Pulse 90 11/21/16 11:55 Resp 15 11/21/16 11:55 BP 127/64 11/21/16 11:55 Pulse Ox 95 11/21/16 11:55 - Orders/Labs/Meds Labs: Laboratory Tests 11/21/16 11/21/16 Range/Units 12:33 12:33 WBC 7.1 (4.5-11.0) K/uL RBC 3.49 (3.30-5.50) M/uL Hgb 9.2 L (12.0-15.0) g/dL Hct 29.2 L (36.0-48.0) % MCV 84 (80-98) fL MCH 26 L (27-31) pg MCHC 32 (32-36) % Plt Count 337 (150-400) K/uL Neut % (Auto) 81 H (36-66) % Lymph % (Auto) 8 L (24-44) % [place] % (Auto) 10 H (2-6) % Eos % (Auto) 1 L (2-4) % Baso % (Auto) 1 (0-1) % Sodium 133 L (140-148) mmol/L Potassium 3.9 (3.6-5.2) mmol/L Chloride 97 L (100-108) mmol/L Carbon Dioxide 31 (21-32) mmol/L Anion Gap 8.9 (5.0-14.0) mmol/L BUN 17 D (7-18) mg/dL Creatinine 0.5 L (0.6-1.0) mg/dL Est Cr Clr Drug Dosing TNP Estimated GFR (MDRD) > 60 (>60) Glucose 182 H (74-106) mg/dL Calcium 8.2 L (8.5-10.1) mg/dL Total Bilirubin 0.4 (0.2-1.0) mg/dL AST 16 (15-37) U/L ALT 13 (12-78) U/L Alkaline Phosphatase 103 (46-116) U/L Total Protein 6.3 L (6.4-8.2) g/dL Albumin 2.0 L (3.4-5.0) g/dL Globulin 4.3 H (2.3-3.5) g/dL Albumin/Globulin Ratio 0.5 L (1.2-2.2) Meds: Medications Discontinued Medications Generic Name Dose Route Start Last Admin Trade Name Kristian PRN Reason Stop Dose Admin Diphenhydramine HCl 25 mg 11/21/16 12:30 11/21/16 12:39 Benadryl IVPUSH 11/21/16 12:31 25 mg ONETIME ONE Administration Heparin Sodium (Porcine) Confirm 11/21/16 14:03 11/21/16 14:17 Heparin Lock Flush 100 Units/Ml Administered 11/21/16 14:04 500 units Dose Administration 500 units .ROUTE .STK-MED ONE Sodium Chloride 1,000 mls @ 1,000 mls/hr 11/21/16 12:30 11/21/16 12:38 Normal Saline IV 1,000 mls/hr ASDIRECTED PAU Administration Pantoprazole Sodium 40 mg 11/21/16 12:20 11/21/16 12:38 Protonix Iv IVPUSH 11/21/16 12:21 40 mg ONETIME ONE Administration Prochlorperazine Edisylate 10 mg 11/21/16 12:20 11/21/16 12:39 Compazine IVPUSH 11/21/16 12:21 10 mg ONETIME ONE Administration - Re-Assessments/Exams Free Text/Narrative Re-Assessment/Exam: 11/21/16 12:30 Accessing the patient's port, we will give her 1 L of normal saline bolus, 10 mg of Compazine and 40 mg of IV Protonix. CBC, CMP will be checked. 11/21/16 13:31 Labs returned reassuring. Her hemoglobin was 9.4 but that is relatively good compared to her past readings. Electrolytes are generally normal. Glucose is 182. She rested comfortably after the medications, and after the 1 L bolus of fluid her felt comfortable taking her home and they will use the Compazine suppositories for nausea that they have at home. Departure - Departure Time of Disposition: 14:31 Disposition: Home, Self-Care 01 Condition: Fair Clinical Impression: Adenocarcinoma of endometrium, stage 4, Dehydration, Vomiting, Abdominal pain - Discharge Information Instructions: Nausea and Vomiting, Adult, [id number] Referrals: Carly Brown MD [Primary Care Provider] - Forms: ED Department Discharge Care Plan Goals: Rest today, increase fluids as tolerated and continue your regular medications including the Compazine suppositories. Recheck in 2-3 days if not improving satisfactorily.
[2016-11-21] MEDS ORDERED: Prochlorperazine 10 MG/2 ML SDV IVPUSH ONE (12:20)
[2016-11-21] MEDS ORDERED: Pantoprazole 40 MG Vial IVPUSH ONE (12:20)
[2016-11-21] MEDS ORDERED: diphenhydrAMINE 50 MG/ML SDV IVPUSH ONE (12:30)
[2016-11-21] MEDS ORDERED: Sodium Chloride 0.9% 1,000 ML IV SCH (12:30)
== END 2016-11-21 14:31 | disposition home or self-care (01) ==
LOC: JP.ED 11:18
DX: E86.0 Dehydration (principal); C54.1 Malignant neoplasm of endometrium; R11.10 Vomiting, unspecified; R10.9 Unspecified abdominal pain; K21.9 Gastro-esophageal reflux disease without esophagitis; Z86.718 Personal history of other venous thrombosis and embolism; Z86.711 Personal history of pulmonary embolism; Z90.710 Acquired absence of both cervix and uterus; Z90.721 Acquired absence of ovaries, unilateral; Z79.899 Other long term (current) drug therapy
CPT/HCPCS: 36415; 80053; 85025; 96361; 96374; 96375; 99284; C9113; J0780; J1200; J1642; J7040

== ENCOUNTER 2016-11-25 04:42 | Emergency (ER) | payer BC ==
[2016-11-25] MEDS ORDERED: Prochlorperazine 10 MG in Sodium Chloride 0.9% 50 ML IV ONE (05:08)
[2016-11-25] MEDS ORDERED: diphenhydrAMINE 50 MG/ML SDV IVPUSH ONE (05:09)
[2016-11-25] MEDS ORDERED: Famotidine 20 MG/2 ML SDV IVPUSH ONE (05:11)
[2016-11-25] MEDS ORDERED: Prochlorperazine 10 MG/2 ML SDV IVPUSH ONE (05:17)
[2016-11-25] MEDS ORDERED: HYDROmorphone 1 MG/ML Syringe IVPUSH ONE (05:56)
--- NOTE | 2016-11-25 06:25 | EDM.PDOC ---
ED HPI GENERAL MEDICAL PROBLEM - General Chief Complaint: Gastrointestinal Problem Stated Complaint: VOMITING/CANCER PATIENT Time Seen by Provider: 11/25/16 05:08 Source of Information: Reports: Patient, Family History Limitations: Reports: No Limitations - History of Present Illness INITIAL COMMENTS - FREE TEXT/NARRATIVE: History of present illness: [60-year-old female who was here 2 days ago who has an unfortunate history of endometrial cancer stage IV. She is presenting with her requesting Compazine and Pepcid and Benadryl. They've received that before for her nausea abdominal pain and it has worked well. Her states that he's trying to build her up so that he can take her down to his [facility] and continue her chemotherapy. She's had no fevers or chills she has constant pain and is on pain meds for this. Oral morphine is what she uses for pain and they have nausea meds at home as well. She also has a port and is receiving TPN.] Review of systems: As per history of present illness and below otherwise all systems reviewed and negative. Past medical history: As per history of present illness and as reviewed below otherwise noncontributory. Surgical history: As per history of present illness and as reviewed below otherwise noncontributory. Social history: No reported history of drug or alcohol abuse. Family history: As per history of present illness and as reviewed below otherwise noncontributory. Physical exam: Gen.: She appears ill and uncomfortable and pale HEENT: Atraumatic, normocephalic, pupils reactive, negative for conjunctival pallor or scleral icterus, mucous membranes moist, throat clear, neck supple, nontender, trachea midline. Lungs: Clear to auscultation Heart: S1S2, regular Abdomen: She has some generalized nonspecific abdominal tenderness without peritoneal signs Pelvis: Stable nontender. Genitourinary: Deferred. Rectal: Deferred. Extremities: Atraumatic, negative for cords or calf pain. Neurovascular unremarkable. Neuro: Awake, alert, oriented. Exam nonfocal. Diagnostics: [We have done dietary lab work they weren't expecting it they were just openly gets a menstrual period help her through this] Therapeutics: [She was given Dilaudid IV plus Pepcid and Benadryl and Compazine.] Impression: [Stage IV endometrial cancer] Plan: [Her will take her home and continue to try to build up her strength so that we can make this trip. If he is having trouble doing so he may eventually want to try to hospitalize her to see if that would help. Were full at this time so he couldn't accept her as an admission here at this time and he understands that and will take her home continue to work with her.] Definitive disposition and diagnosis as appropriate pending reevaluation and review of above. Epigastric Pain Score (Numeric/FACES): 5 left leg Pain Score (Numeric/FACES): 5 - Related Data Allergies Allergy/AdvReac Type Severity Reaction Status Date / Time No Known Allergies Allergy Verified 11/03/16 21:53 Home Meds: Home Meds *Cannibus PO ASDIRECTED 10/29/16 [History] *Cbd Oil ASDIRECTED 10/29/16 [History] *Doxil ASDIRECTED 10/29/16 [History] LORazepam [Ativan ORAL Concentrate 1MG/0.5 ML U/D] 1 mg PO Q4H PRN 10/29/16 [ History] Morphine [Morphine 10 MG/5 ML] 5 mg PO Q4H PRN 10/31/16 [History] Lidocaine 5% [Lidoderm 5%] 700 mg TOP Q24H #30 patch 11/01/16 [Rx] Ondansetron [Zofran Odt] 8 mg PO ASDIRECTED #30 tab.dis 11/01/16 [Rx] Prochlorperazine [Compazine] 10 mg PO TIDAC #90 tablet 11/01/16 [Rx] Scopolamine [Transderm-Scop] 1.5 mg TRDERM Q72H #10 patch 11/01/16 [Rx] Ondansetron [Zofran ODT] 4 mg PO Q8H #20 tab.dis 11/03/16 [Rx] Omeprazole 40 mg PO BID #30 cap.cr 11/08/16 [Rx] Sodium/K+/Mag/Ca/Chlor/Acetate [TPN Electrolytes II IV Soln] 11/21/16 [History] Past Medical History HEENT History: Reports: Hard of Hearing, Impaired Vision Cardiovascular History: Reports: Arrhythmia, Blood Clots/VTE/DVT, Other (See Below) Other Cardiovascular History: cardiovert Respiratory History: Reports: PE Gastrointestinal History: Reports: Chronic Constipation, Chronic Diarrhea, GERD 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: , Other (See Below) Other OB/BYN History: endometrial cancer Psychiatric History: Reports: Depression Hematologic History: Reports: Anemia, Other (See Below) Other Hematologic History: ANEMIA Immunologic History: Reports: Immunosuppression Oncologic (Cancer) History: Reports: Other (See Below) Other Oncologic History: endometrial - Infectious Disease History Infectious Disease History: Reports: Chicken Pox - Past Surgical History HEENT Surgical History: Reports: Other (See Below) Other HEENT Surgeries/Procedures: patch hole in ear drum Cardiovascular Surgical History: Reports: None Female Surgical History: Reports: Hysterectomy, Oophorectomy, Salpingo- Oophorectomy Social & Family History - Family History Family Medical History: Unobtainable - Tobacco Use Smoking Status *Q: Never Smoker Second Hand Smoke Exposure: No - Caffeine Use Caffeine Use: Reports: None - Recreational Drug Use Recreational Drug Use: No Recreational Drug Type: Reports: Marijuana/Hashish Other Recreational Drug Type: cannibus oil subliqual Recreational Drug Use Frequency: Daily - Living Situation & Occupation Living situation: Reports: Occupation: Other (lives with Femi , who is the "[employer]", [place], [place], two grown children age 41 yr and 42 yrs. many grandchildren) ED ROS GENERAL - Review of Systems Review Of Systems: ROS reveals no pertinent complaints other than HPI. ED EXAM, GI/ABD - Physical Exam Exam: See Below Course - Vital Signs Last Recorded V/S: Last Vital Signs Temp 36.8 C 11/25/16 04:54 Pulse 83 11/25/16 04:54 Resp 16 11/25/16 04:54 BP 152/69 H 11/25/16 04:54 Pulse Ox 95 11/25/16 04:54 - Orders/Labs/Meds Meds: Medications Discontinued Medications Generic Name Dose Route Start Last Admin Trade Name Freq PRN Reason Stop Dose Admin Diphenhydramine HCl 50 mg 11/25/16 05:09 11/25/16 05:44 Benadryl IVPUSH 11/25/16 05:10 50 mg ONETIME ONE Administration Famotidine 20 mg 11/25/16 05:11 11/25/16 05:49 Pepcid IVPUSH 11/25/16 05:12 20 mg ONETIME ONE Administration Hydromorphone HCl 1 mg 11/25/16 05:56 11/25/16 06:03 Dilaudid IVPUSH 11/25/16 05:57 1 mg ONETIME ONE Administration Prochlorperazine Edisylate 10 mg 11/25/16 05:17 11/25/16 05:35 Compazine IVPUSH 11/25/16 05:18 10 mg ONETIME ONE Administration Departure - Departure Time of Disposition: 06:23 Disposition: Home, Self-Care 01 Condition: Fair Clinical Impression: Endometrial cancer - Discharge Information Forms: ED Department Discharge Additional Instructions: We'll be happy to see her anytime that you need our help. We wish you the best as you continue to ortiz with this disease.
[2016-11-25 07:23] VITALS: BP 121/46
== END 2016-11-25 07:30 | disposition home or self-care (01) ==
LOC: JP.ED 04:42
DX: C54.1 Malignant neoplasm of endometrium (principal); F32.9 Major depressive disorder, single episode, unspecified; K21.9 Gastro-esophageal reflux disease without esophagitis; Z86.718 Personal history of other venous thrombosis and embolism; Z86.711 Personal history of pulmonary embolism; Z86.2 Personal history of diseases of the blood and blood-forming organs and certain disorders involving the immune mechanism; Z90.710 Acquired absence of both cervix and uterus; Z90.721 Acquired absence of ovaries, unilateral; Z79.899 Other long term (current) drug therapy
CPT/HCPCS: 96374; 96375; 99284; J0780; J1170; J1200; S0028

== ENCOUNTER 2016-11-30 05:41 | Emergency (ER) | payer BC ==
[2016-11-30] MEDS ORDERED: Lactated Ringers 1,000 ML IV ONE (06:21)
[2016-11-30] MEDS ORDERED: Prochlorperazine 10 MG/2 ML SDV IVPUSH ONE (06:21)
[2016-11-30] MEDS ORDERED: diphenhydrAMINE 50 MG/ML SDV IVPUSH ONE (06:22)
--- NOTE | 2016-11-30 06:24 | EDM.PDOC ---
<OfficerAkhil - Last Filed: 11/30/16 06:22> ED HPI GENERAL MEDICAL PROBLEM - General Chief Complaint: Gastrointestinal Problem Stated Complaint: VOMITING Time Seen by Provider: 11/30/16 06:14 Source of Information: Reports: Patient, Family, RN Notes Reviewed History Limitations: Reports: No Limitations - History of Present Illness INITIAL COMMENTS - FREE TEXT/NARRATIVE: 60-year-old female presents emergency department today ongoing nausea and vomiting, she has known history of stage IV endometrial cancer currently going to chemotherapy, she has been in the emergency department multiple times for the same complaint they are scheduled to return to the cancer centers of [facility] for further treatment this upcoming week. Gets routine lab work through her home health nurse Lower Abdomen Pain Score (Numeric/FACES): 7 - Related Data Allergies Allergy/AdvReac Type Severity Reaction Status Date / Time No Known Allergies Allergy Verified 11/30/16 05:49 Home Meds: Home Meds *Cannibus PO ASDIRECTED 10/29/16 [History] *Cbd Oil ASDIRECTED 10/29/16 [History] *Doxil ASDIRECTED 10/29/16 [History] LORazepam [Ativan ORAL Concentrate 1MG/0.5 ML U/D] 1 mg PO Q4H PRN 10/29/16 [ History] Morphine [Morphine 10 MG/5 ML] 5 mg PO Q4H PRN 10/31/16 [History] Lidocaine 5% [Lidoderm 5%] 700 mg TOP Q24H #30 patch 11/01/16 [Rx] Ondansetron [Zofran Odt] 8 mg PO ASDIRECTED #30 tab.dis 11/01/16 [Rx] Prochlorperazine [Compazine] 10 mg PO TIDAC #90 tablet 11/01/16 [Rx] Scopolamine [Transderm-Scop] 1.5 mg TRDERM Q72H #10 patch 11/01/16 [Rx] Ondansetron [Zofran ODT] 4 mg PO Q8H #20 tab.dis 11/03/16 [Rx] Sodium/K+/Mag/Ca/Chlor/Acetate [TPN Electrolytes II IV Soln] 11/21/16 [History] Famotidine [Pepcid] 20 mg IV DAILY 11/30/16 [History] Granisetron [Sancuso] 1 patch TOP WEEKLY 11/30/16 [History] Past Medical History HEENT History: Reports: Hard of Hearing, Impaired Vision Cardiovascular History: Reports: Arrhythmia, Blood Clots/VTE/DVT, Other (See Below) Other Cardiovascular History: cardiovert Respiratory History: Reports: PE Gastrointestinal History: Reports: Chronic Constipation, Chronic Diarrhea, GERD 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: , Other (See Below) Other OB/BYN History: endometrial cancer Psychiatric History: Reports: Depression Hematologic History: Reports: Anemia, Other (See Below) Other Hematologic History: ANEMIA Immunologic History: Reports: Immunosuppression Oncologic (Cancer) History: Reports: Other (See Below) Other Oncologic History: endometrial - Infectious Disease History Infectious Disease History: Reports: Chicken Pox - Past Surgical History HEENT Surgical History: Reports: Other (See Below) Other HEENT Surgeries/Procedures: patch hole in ear drum Cardiovascular Surgical History: Reports: None Female Surgical History: Reports: Hysterectomy, Oophorectomy, Salpingo- Oophorectomy Social & Family History - Family History Family Medical History: Unobtainable - Tobacco Use Smoking Status *Q: Never Smoker Second Hand Smoke Exposure: No - Caffeine Use Caffeine Use: Reports: Tea - Recreational Drug Use Recreational Drug Use: Yes Recreational Drug Type: Reports: Marijuana/Hashish Other Recreational Drug Type: cannibus oil subliqual Recreational Drug Use Frequency: Daily - Living Situation & Occupation Living situation: Reports: Occupation: Other (lives with Femi , who is the "[employer]", [place], [place], two grown children age 41 yr and 42 yrs. many grandchildren) ED ROS GENERAL - Review of Systems Review Of Systems: See Below Constitutional: Denies: Fever, Chills HEENT: Reports: No Symptoms Respiratory: Reports: No Symptoms Cardiovascular: Reports: No Symptoms GI/Abdominal: Reports: Abdominal Pain, Nausea, Vomiting : Reports: No Symptoms Musculoskeletal: Reports: No Symptoms Skin: Reports: No Symptoms ED EXAM, GENERAL - Physical Exam Exam: See Below Exam Limited By: No Limitations General Appearance: Alert, Mild Distress Respiratory/Chest: No Respiratory Distress, Lungs Clear, Normal Breath Sounds, No Accessory Muscle Use Cardiovascular: Regular Rate, Rhythm, No Murmur GI/Abdominal: Normal Bowel Sounds, Soft, Tender (Generalized tenderness to palpation) Course - Vital Signs Last Recorded V/S: Last Vital Signs Temp 97.8 F 11/30/16 07:48 Pulse 85 11/30/16 07:48 Resp 15 11/30/16 07:48 BP 134/68 11/30/16 07:48 Pulse Ox 92 L 11/30/16 07:48 - Orders/Labs/Meds Meds: Medications Discontinued Medications Generic Name Dose Route Start Last Admin Trade Name Kristian PRN Reason Stop Dose Admin Diphenhydramine HCl 25 mg 11/30/16 06:22 11/30/16 06:41 Benadryl IVPUSH 11/30/16 06:23 25 mg ONETIME ONE Administration Lactated Ringer's 1,000 mls @ 999 mls/hr 11/30/16 06:21 11/30/16 06:36 Ringers, Lactated IV 11/30/16 07:21 999 mls/hr BOLUS ONE Administration Prochlorperazine Edisylate 10 mg 11/30/16 06:21 11/30/16 06:37 Compazine IVPUSH 11/30/16 06:22 10 mg ONETIME ONE Administration Departure - Departure Disposition: Home, Self-Care 01 Clinical Impression: Adenocarcinoma of endometrium, stage 4, Vomiting, Dehydration - Discharge Information Instructions: Dehydration, Adult, [id number], Nausea and Vomiting, Adult Referrals: Carly Brown MD [Primary Care Provider] - Forms: ED Department Discharge Care Plan Goals: Continue your medications as prescribed. Recheck at the cancer treatment center as planned. <Xander Nelson - Last Filed: 11/30/16 07:57> Course - Re-Assessments/Exams Free Text/Narrative Re-Assessment/Exam: 11/30/16 07:44 Patient's symptoms improved. A medication check through pharmacy provided reassurance that she can combine Emend and Zofran for nausea control. Patient's intent is to go to the cancer treatment center today. Departure - Departure Time of Disposition: 07:50 Condition: Fair
[2016-11-30 07:50] VITALS: BP 134/68
== END 2016-11-30 07:55 | disposition home or self-care (01) ==
LOC: JP.ED 05:41
DX: E86.0 Dehydration (principal); R11.2 Nausea with vomiting, unspecified; C54.1 Malignant neoplasm of endometrium; F32.9 Major depressive disorder, single episode, unspecified; K21.9 Gastro-esophageal reflux disease without esophagitis; Z86.718 Personal history of other venous thrombosis and embolism; Z86.2 Personal history of diseases of the blood and blood-forming organs and certain disorders involving the immune mechanism; Z90.710 Acquired absence of both cervix and uterus; Z90.721 Acquired absence of ovaries, unilateral; Z79.899 Other long term (current) drug therapy
CPT/HCPCS: 96361; 96374; 96375; 99283; J0780; J1200; J7120